=== PATIENT | male | born 1960 | race Caucasian/White ===

== ENCOUNTER 2024-02-16 08:40 | Emergency (ER) | payer BC, SELFPAY ==
[2024-02-16] VITALS (8 sets, daily range): BP systolic 116–151; BP diastolic 72–93; BMI 31.4
[2024-02-16] MEDS: NSS 1000 IV ×2 (09:10→11:33)
--- NOTE | 2024-02-16 09:12 | ED.GENMED ---
History of Present Illness
General
Chief Complaint: Hyper/Hypo Thermia Problem
Source: patient
Exam Limitations: none
Time Seen by Provider: 02/16/24 08:42
History of Present Illness
History of Present Illness:
63-year-old male presents via EMS from home. He was seen last evening when his got home from work. She went to bed around 10 and he decided to go outside and do yard work. He was outside all night and she found her next to her car. Patient
denies any fall. He was on the ground and could not get up. He does complain slightly of left ankle pain. He admits to drinking a handle of vodka daily but last drink was about 5 days ago. He is never withdrawn from alcohol. He is on lisinopril
daily but no other medications. He denies chest pain or shortness of breath. No other complaints.
Past History
Past History
ED Past Medical History: Other (n/a) and Other (n/a)
Social History
Tobacco: Non-smoker
Personal:
Living: with family
Employment: Employed
Phy Exam
Physical Exam
Physical Exam:
General: Unkempt male no acute respiratory distress
Neurologic: Somnolent but responsive to verbal stimuli follows commands oriented to person place and time. No facial asymmetry
HEENT: Normocephalic mucosa dry no bite burt to the tongue
Heart: Regular rate and rhythm
Lungs: Clear no wheeze
Extremities: No cyanosis.
Musculoskeletal exam: Spine nontender is slightly tender over the anterior medial left ankle
Course
Orders/Labs/Results
Orders:
Orders
02/16/24 08:48
EKG [Electrocardiogram (*1)] Stat
Reason for Study: Fatigue / Weakness
02/16/24 08:49
EKG- Treatment ONCE
02/16/24 09:01
Alcohol Urgent
Ammonia Urgent
CPK [Creatine Phosphokinase] Urgent
Complete Blood Count/With Diff Urgent
Comprehensive Metabolic Panel Urgent
02/16/24 09:09
CT Head W/o Iv Contrast Urgent
Comment:
Reason For Exam: confusion
0.9% Sodium Chloride 1000 ml [Nss] 1,000 ml IV BOLUS
02/16/24 09:10
Add On- LAB Urgent
Tests Added?: alcohol
02/16/24 09:11
CR Ankle - Left Min 3 Views Urgent
Comment:
Reason For Exam: pain
02/16/24 10:41
MR Brain W/o & With Contrast Urgent
Comment:
Reason For Exam: change in mental status, abnormal CT
Recent pill cam endoscopy?: No
02/16/24 10:48
Dexamethasone Sod Phosphate [Decadron] 10 mg IV NOW STA
Levetiracetam Injectable [Keppra] 1,000 mg IV NOW STA
02/16/24 10:51
0.9% Sodium Chloride 1000 ml [Nss] 1,000 ml IV BOLUS
02/16/24 11:27
CR Orbits - Pre Mri Urgent
Comment:
Reason For Exam: mri screen
02/16/24 11:47
CR Chest Single View Urgent
Reason For Exam: cough
Abnormal Lab Results
02/16/24
09:01
WBC 14.8 H 10^3/uL
(4.8-10.8)
RBC 4.44 L 10^6/uL
(4.70-6.10)
MCV 95.5 H fL
(80.0-94.0)
MCH 32.9 H pg
(27.0-31.0)
Abs Immat Gran (auto) 0.1 H 10^3/uL
(0-0.05)
Absolute Neuts (auto) 13.1 H 10^3/uL
(1.4-6.5)
Absolute Lymphs (auto) 0.7 L 10^3/uL
(1.2-3.4)
Absolute Monos (auto) 0.8 H 10^3/uL
(0.1-0.6)
Neutrophils % 88.8 H %
(42.2-75.2)
Lymphocytes % 4.9 L %
(20.5-51.1)
Carbon Dioxide 20 L mmol/L
(22-30)
BUN 24 H mg/dl
(9-20)
Glucose 134 H mg/dl
(70-99)
Calcium 10.3 H mg/dl
(8.4-10.2)
AST 91 H U/L
(17-59)
Ammonia < 9 L umol/L
(9-30)
Creatine Kinase 3187 H U/L
(55-170)
02/16/24 09:01
02/16/24 09:01
Vital Signs
Initial and Last Documented VS:
Initial Vital Signs
Temp Pulse Resp BP
98.6 F 94 16 116/72
02/16/24 08:44 02/16/24 08:44 02/16/24 08:44 02/16/24 08:44
Last Documented Vital Signs
Temp Pulse Resp BP Pulse Ox
98.6 F 79 19 142/83 95
02/16/24 08:44 02/16/24 12:15 02/16/24 12:15 02/16/24 12:00 02/16/24 12:24
MDM/Problems Addressed
Differential Diagnosis Includes:
Weakness, change in mental status. Patient went outside sometime throughout the night and was found on the ground this morning by his . He told me he was weeding outside. He was on the ground and could not get up. He notes fairly heavy
regular alcohol use but has not used in several days. Question possible early delirium from alcohol withdrawal although vital signs are stable. Question seizure but no bite burt on tongue. CT of head pending check labs. Ankle x-ray pending
*Critical Care Note
Total Time (30-74mins, 75-104mins- exclusive of procedures): Not Applicable
Update Note
Update Note:
CT head demonstrates bilateral frontal lesions with surrounding edema and subtle shift. now in the room. She states he has not been acting himself over the last couple months. Ankle x-rays are negative labs reviewed. Workup does demonstrate
concern for rhabdomyolysis with elevated CPK. 2 L of fluid ordered. Discussed findings of CT of head with emergency room attending as well as neurosurgery. Keppra and Decadron were ordered. Patient's family member is a nurse practitioner in
oncology at [facility]. Will contact them for potential transfer.
Patient is alert. He is responsive. Vital signs are stable
Reexamined patient still alert and responsive. MRI of brain was reviewed which demonstrates 2 separate masses 1 measuring 4 cm in the left frontal area 1 measuring 3 cm in the right frontal area both with severe surrounding vasogenic edema with
wstt-yo-bqukh shift. Spoke with neurosurgery at [facility], Dr. Lara. They agree to accept the patient in the ICU. Arrangements will be made for transfer
ED Attending Note
-
Portions of this chart may have been created with voice recognition software.� Occasional wrong word or��sound alike� substitutions may have occurred due to the inherent limitations of voice recognition software.
Discharge Plan
Departure
Patient Disposition: Acute Care Hospital
Date of Disposition: 02/16/24
Time of Disposition: 14:37
Discharge Problem:
Brain mass
Prescriptions:
No Action
lisinopril 10 mg tablet
10 mg PO DAILY Qty: 30 0RF
doxycycline hyclate 100 mg capsule
100 mg PO BID Qty: 14 0RF
Referrals:
UNKNOWN - PT DOES,NOT KNOW [Family Provider] -
Hospital Transfer
Other hospital: [facility]
I certify that the patient requires transfer: Yes
Discussed case with accepting physician: Dr. Lara
Reason for transfer: higher level of care and specialties available
Interventions
Interventions:
*Risk Screen - Suicide Last Done: 02/16/24 08:44
*General Assessment Last Done: 02/16/24 08:44
*Neglect/Abuse Screening Last Done: 02/16/24 08:44
ED- Fall Risk Assessment Last Done: 02/16/24 11:58
*ED COVID-19 Vaccine History Last Done: 02/16/24 11:58
ED- Neurological Assessment Last Done: 02/16/24 11:58
ED-Skin Assessment Last Done: 02/16/24 11:58
Discharge Date and Time
Print Language: PORTUGUESE
[2024-02-16 09:20] LABS: % Basophils 0.5 % (0-2); % Immature Granulocytes 0.3 % (0-0.5); % Lymphocytes 4.9 % (20.5-51.1); % Monocytes 5.5 % (1.7-9.3); % Neutrophils 88.8 % (42.2-75.2); Absolute Basophils 0.1 10^3/uL (0-0.2); Absolute Immature Granulocytes 0.1 10^3/uL (0-0.05); Absolute Lymphocytes 0.7 10^3/uL (1.2-3.4); Absolute Monocytes 0.8 10^3/uL (0.1-0.6); Absolute Neutrophils 13.1 10^3/uL (1.4-6.5); Hematocrit 42.4 % (39.0-52.0); Hemoglobin 14.6 g/dL (13.0-18.0); Mean Corp Hgb Conc. 34.4 g/dL (33.0-37.0); Mean Corpuscular Hgb 32.9 pg (27.0-31.0); Mean Corpuscular Volume 95.5 fL (80.0-94.0); Mean Platelet Volume 9.9 fL (7.4-10.4); Nucleated Red Blood Cells % 0 % (-); Platelet Count 263 10^3/uL (130-400); Red Blood Cell Count 4.44 10^6/uL (4.70-6.10); Red Cell Dist. Width 11.6 % (11.5-14.5); White Blood Cell Count 14.8 10^3/uL (4.8-10.8)
[2024-02-16 09:32] LABS: ALT (SGPT) 34 U/L (0-50); AST (SGOT) 91 U/L (17-59); Albumin 4.7 g/dl (3.5-5.0); Alkaline Phosphatase 91 U/L (38-126); Blood Urea Nitrogen 24 mg/dl (9-20); Calcium 10.3 mg/dl (8.4-10.2); Carbon Dioxide 20 mmol/L (22-30); Chloride 107 mmol/L (98-107); Estimated Creatinine Clearance 114 ml/min; Glucose 134 mg/dl (70-99); Potassium 3.8 mmol/L (3.5-5.1); Sodium 145 mmol/L (135-145); Total Bilirubin 0.9 mg/dl (0.2-1.3); Total Protein 7.6 g/dl (6.3-8.2); eGFR > 60.00
[2024-02-16 09:35] LABS: Ammonia < 9 umol/L (9-30)
[2024-02-16 09:40] LABS: Alcohol None Detected
[2024-02-16 09:42] LABS: Creatine Phosphokinase 3187 U/L (55-170)
[2024-02-16] MEDS: DECADRON 10 MG IV (11:33)
[2024-02-16] MEDS: KEPPRA 1000 MG IV (11:40)
== END 2024-02-16 16:05 | disposition short-term general hospital (02) ==
LOC: EMR 08:40
PROVIDERS: Physician Assistant; EMERGENCY PHYSICIAN Emergency Medicine
DX: G93.9 Disorder of brain, unspecified (principal); M25.572 Pain in left ankle and joints of left foot
CPT/HCPCS: 99285; 96374; 96375; 96361 ×2; 70030; 70450; 70553; 71045; 73610; 80053; 82077; 82140; 82550; 85025; 93005; A9575

== ENCOUNTER 2024-09-05 16:04 | Inpatient (IN) | payer BC, MEDICARE, SELFPAY ==
[2024-09-05] VITALS (19 sets, daily range): BP systolic 90–153; BP diastolic 56–80; PULSE 112–149; BMI 29.7
--- NOTE | 2024-09-05 12:47 | ED.GENMED ---
History of Present Illness
General
Chief Complaint: Blood Pressure Problem
Source: patient
Exam Limitations: none
Time Seen by Provider: 09/05/24 12:16
Nursing documentation reviewed up to this point in time: agreed with
History of Present Illness
History of Present Illness:
Patient is a 64-year-old male with past medical history of lymphoma on chemo treated at [facility] presents to the ER for evaluation. Patient reports for the past several days he has had chills decreased appetite. Today the visiting nurse came to assess
him and his blood pressure was low. He did feel dizzy with standing. He denies any actual fevers. Denies any chest pain shortness of breath. He denies any cough nasal congestion recent URI symptoms. He did have some diarrhea. He denies any
abdominal pain. He does report that his platelets were low and he received 2 units platelets on Monday 2 days ago at [facility]. He does report they are planning to do a stem cell transplant.
DR Carrol Mayorga is his oncologist
He denies any dark or black stool
Past History
Past History
ED Past Medical History: Other (n/a) and Other (n/a)
Social History
Tobacco: Non-smoker
Personal:
Living: with family
Employment: Employed
Review of Systems
Review of Systems
Allergies reviewed?: Yes
All Other Systems: ROS reviewed and negative except as documented in HPI and ROS
Constitutional: Reports fatigue and chills
Respiratory: Reports no symptoms; Denies cough or trouble breathing
Cardiac: Reports no symptoms
ABD/GI: Reports no symptoms
: Reports no symptoms
Musculoskeletal: Reports no symptoms
Skin: Reports no symptoms
Neurological: Reports no symptoms
Endocrine: Reports no symptoms
Psychiatric: Reports no symptoms
Phy Exam
General Physical Exam
General Presentation: no apparent distress
General age: appears stated age
General Skin: warm and dry
General Habitus: normal
General Mental: alert
General Hydration: dry mucous membranes
Cardiovascular Exam
Cardiovascular Exam: regular rate/rhythm, no murmur and normal peripheral pulses
Pulmonary Exam
Pulmonary Exam: lungs clear and no respiratory distress
Neurological Exam
Neurological Exam: alert and oriented x3
Musculoskeletal Exam
Musculoskeletal Exam: full ROM
Skin Exam
Skin Exam: normal color and warm/dry
Psychiatric Exam
Psychiatric Exam: normal mood/affect
Course
Orders/Labs/Results
Orders:
Orders
09/05/24 Lunch
Regular
09/05/24 12:55
Cardiac Monitoring- Treatment ONCE
IV Insert/Care/Rem.- Treatment PRN
Chest [CR Chest - 2 Views ] Urgent
Comment:
Reason For Exam: chills/chemo pt
09/05/24 12:58
0.9% Sodium Chloride 1000 ml [Nss] 1,000 ml IV BOLUS
09/05/24 13:11
COVID-19 Antigen Urgent
Source: Nasal Swab
Urinalysis Reflex To Culture Urgent
Date Specimen was Collected: 09/05/24
Time Specimen was Collected: 13:02
Urine Microscopic Reflex Cult Urgent
Influenza A+B Rapid Molecular Urgent
NANCI Source: Nasal Swab
Specimen Description:
Urine Culture Urgent
NANCI Source: U
Specimen Description:
Date Specimen was Collected: 09/05/24
Time Specimen was Collected: 13:02
09/05/24 13:26
Complete Blood Count/With Diff Urgent
Comprehensive Metabolic Panel Urgent
Lactic Acid Q4H
Comment: CANCEL 2nd LACTIC ACID IF 1st LACTIC ACID IS LESS THAN 2
09/05/24 14:15
* Blood Bank Products Urgent
'buster Orders: [place]/froy
Blood Bank Products: *Plt Single Donor Leuko
Quantity: 2
Transfuse Today: Yes
Reason: Thrombocytopenia
* Blood Bank Products Urgent
'buster Orders: [place]/froy
Blood Bank Products: *Packed RBC Leuko(PRBC's)
Quantity: 1
Transfuse Today: Yes
Reason: Anemia
09/05/24 14:42
Type And Crossmatch [Type+Screen] Urgent
Blood Culture Q30M
NANCI Source: Blood/Venous
Specimen Description:
Blood Culture Q30M
NANCI Source: Blood/Venous
Specimen Description:
09/05/24 15:21
ABO2 Urgent
BBK Wristband Number:
Associate notified that ABO2 has been ordered: [id number]
Date: 09/05/24
Time: 14:59
Digital Color Press Operator ID: [id number]
09/05/24 15:48
Admit/Transfer Patient As Directed
Co-Sign Provider:
Level of Care: Inpatient admission
Assign to:: Telemetry
Physician / Group: Samra Osorio
Diagnosis: low blood pressure; pancytopenia
Reason for Telemetry: Chest Pain syndromes
Date to Stop Telemetry: 09/07/24
Time to Stop Telemetry: 11:00
Reason for Hospitalization: low blood pressure; pancytopenia
Expected length of stay greater than two midnights?: Yes
ELOS- Estimated Length of Stay in days: 3
I certify the patient meets the requirements for IP care: Yes
PRN Pain Medication Management As Directed
May give lesser potent ordered pain med per pt: Yes
preference::
Protocol:: Medication orders for pain may be administered in a
manner that supports deferring to patient preference
when the pt is:
- Requesting an ordered lesser potent pain medication.
Least to most potent pain medications are defined
as: acetaminophen < NSAID < tramadol < opioids
(morphine, oxycodone, hydromorphone).
- Requesting a lesser dose of the same medication IF
ORDERED.
- Requesting a less intrusive route of administration
if both routes are prescribed by the provider (PO <
IV).
09/05/24 15:49
Code Status As Directed
Resuscitation Status: Full Code
09/05/24 15:57
EKG [Electrocardiogram (*1)] Routine
Reason for Study: Shortness of Breath
09/05/24 16:04
Precautions As Directed
Type of Precautions: Neutropenic
09/05/24 18:25
Acetaminophen [Tylenol] 650 mg PO Q4HPRN PRN
Docusate W/Senna [Senokot-S] 1 tablet PO BIDPRN PRN
Polyethylene Glycol Powder [Miralax] 17 grams PO DAILYPRN PRN
09/05/24 18:25
Consult Hematology [HEMATOLOGY CONSULT] Routine
Consulting Provider: Arthur Vanessa
Was physician already notified: Yes
Activity As Directed
Activity Level: As Tolerated
Nursing to Place Non Medication Order As Directed
Physician Order: please update eye care professional physician with any T > / = 100.4. If so, antibiotics should be
started.
Orthostatic Vital Signs As Directed
Orthostatic VS Frequency: BID
Pneumatic Compression Sleeves As Directed
Type: Knee high
Vital Signs As Directed
Frequency: Per unit guidelines
DX Deep Vein Thrombosis Video Routine
09/05/24 20:00
Complete Blood Count/No Diff Routine
Acyclovir [Zovirax] 800 mg PO BID
Levetiracetam [Keppra] 1,000 mg PO BID
09/06/24 06:00
Basic Metabolic Panel IN AM
Complete Blood Count/With Diff IN AM
Comprehensive Metabolic Panel IN AM
Magnesium IN AM
09/06/24 08:00
Cyanocobalamin [Vitamin B-12] 1,000 mcg PO DAILY
Sulfamethoxazole/Trimethoprim [Bactrim 400 mg/80 mg] 1 tablet PO MoWeFr@0800
Thiamine HCl [Vitamin B1] 100 mg PO DAILY
09/07/24 11:00
DC Protocol for Telemetry ONCE
Abnormal Lab Results
09/05/24 09/05/24 09/05/24
13:11 13:26 14:42
WBC 0.1 L* 10^3/uL
(4.8-10.8)
RBC 2.08 L 10^6/uL
(4.70-6.10)
Hgb 6.9 L* g/dL
(13.0-18.0)
Hct 19.0 L* %
(39.0-52.0)
MCH 33.2 H pg
(27.0-31.0)
Plt Count 6 L* 10^3/uL
(130-400)
Absolute Neuts (auto) 0.0 L* 10^3/uL
(1.4-6.5)
Absolute Lymphs (auto) 0.1 L 10^3/uL
(1.2-3.4)
Absolute Monos (auto) 0.0 L 10^3/uL
(0.1-0.6)
Neutrophils % 0.0 L %
(42.2-75.2)
Lymphocytes % 92.9 H %
(20.5-51.1)
Monocytes % 0.0 L %
(1.7-9.3)
Eosinophils % 7.1 H %
(0-6)
BUN 33 H mg/dl
(9-20)
Creatinine 1.8 H mg/dL
(0.7-1.3)
Glucose 115 H mg/dl
(70-99)
AST 13 L U/L
(17-59)
Leukocyte Esterase Rfl 1+ A
(Negative)
Urine RBC 3-6 A /HPF
(0-2)
Urine Bacteria (Reflex) Moderate A
(Negative)
Urine Albumin (Reflex) 1+ A
(Neg - Trace)
Crossmatch IS Only See Detail
09/05/24 13:26
09/05/24 13:26
Vital Signs
Initial and Last Documented VS:
Initial Vital Signs
Temp Pulse Resp BP Pulse Ox
98.0 F 78 16 107/56 98
09/05/24 11:48 09/05/24 11:48 09/05/24 11:48 09/05/24 11:48 09/05/24 11:48
Last Documented Vital Signs
Temp Pulse Resp BP Pulse Ox
97.8 F 113 20 90/67 95
09/05/24 19:47 09/05/24 19:47 09/05/24 19:47 09/05/24 19:47 09/05/24 19:35
City Councilman consulted with Physician
City Councilman consulted with physician?: Yes
Name of Physician Consulted: [place]
MDM/Problems Addressed
MDM/Problems Addressed:
Patient is a 64-year-old male being treated with chemotherapy for lymphoma presents to the ER for evaluation. He was sent by visiting nurse his blood pressure was low. He does complain of feeling decreased appetite and chills for the past several
days. He denies any URI or cold symptoms.. Patient presents here afebrile white count however low at 0.1 with 0 neutrophils hemoglobin noted 6.9 will require blood transfusion along with low platelets of 6000. Patient will require platelet
transfusion. Patient is followed at [facility] and just had platelet transfusion on Monday 2 days ago. Patient with elevated kidney function including BUN of 33 and creatinine 1.8 patient has his labs from his portal at [facility]. His last creatinine was
elevated at 1.44 on September 02
His white count was 0.1 and his platelets were 6 prior to him receiving 2 units of platelets at [facility].
Patient denies any dark or black stool. Will need admission for evaluation platelet transfusion as well as blood. I did place a call to his oncologist awaiting callback
PANTRY STEWARD/STEWARDESS from [facility] oncology called back and aware that patient is here and being admitted.
*Radiology
Radiology exam reviewed: radiology read reviewed
*Pulse Oximetry
Patient hypoxic: no
*EKG
Interpreted by ED Provider?: Yes
Heart Rate: 77
Rate: normal
Rhythm: sinus
Ischemia: no ischemia
*Critical Care Note
Total Time (30-74mins, 75-104mins- exclusive of procedures): Not Applicable
ED Attending Note
-
Portions of this chart may have been created with voice recognition software.� Occasional wrong word or��sound alike� substitutions may have occurred due to the inherent limitations of voice recognition software.
Discharge Plan
Departure
Patient Disposition: Admit
Date of Disposition: 09/05/24
Time of Disposition: 15:06
Admit to doctor: hospitalist
Presentation/result/management discussed w/ accepting MD/DO: Hospitalist
Patient with high blood pressure during this ER visit?: No
Condition: Fair
Covid-19: Not Applicable
Discharge Problem:
Anemia, Neutropenia, Thrombocytopenia
Interventions
Interventions:
*Risk Screen - Suicide Last Done: 09/05/24 11:48
*General Assessment Last Done: 09/05/24 13:00
*Neglect/Abuse Screening Last Done: 09/05/24 11:48
*ED- Fall Risk Assessment Last Done: 09/05/24 13:00
*ED COVID-19 Vaccine History Last Done: 09/05/24 13:00
*Nursing Disposition Last Done: 09/05/24 18:15
ED- Cardiac Assessment Last Done: 09/05/24 13:19
ED- Neurological Assessment Last Done: 09/05/24 13:19
ED- Pulmonary Assessment Last Done: 09/05/24 13:19
Discharge Date and Time
Discharge Date/Time: 09/05/24 18:15
[2024-09-05 13:25] LABS: Urine Albumin 1+ (Neg - Trace); Urine Bilirubin Negative (Negative); Urine Character Clear (Clear); Urine Color Yellow; Urine Glucose Negative (Negative); Urine Ketone Negative (Negative); Urine Leukocyte 1+ (Negative); Urine Nitrite Negative (Negative); Urine Occult Blood Negative (Negative); Urine Specific Gravity 1.025 (<1.030); Urine Urobilinogen Negative (Neg - 1+)
[2024-09-05] MEDS: NSS 1000 IV (13:30)
[2024-09-05 13:34] LABS: Urine Hyaline Cast 0-2 /LPF (0-2)
[2024-09-05 13:35] LABS: Urine Bacteria Moderate (Negative)
[2024-09-05 13:38] LABS: COVID-19 Antigen Negative (Negative)
[2024-09-05 13:56] LABS: Lactic Acid 0.7 mmol/L (0.7-2.0)
[2024-09-05 13:57] LABS: Hemoglobin 6.9 g/dL (13.0-18.0); Mean Corp Hgb Conc. 36.3 g/dL (33.0-37.0); Mean Corpuscular Hgb 33.2 pg (27.0-31.0); Mean Corpuscular Volume 91.3 fL (80.0-94.0); Mean Platelet Volume 10.3 fL (7.4-10.4); Platelet Count 6 10^3/uL (130-400); Red Blood Cell Count 2.08 10^6/uL (4.70-6.10); Red Cell Dist. Width 11.7 % (11.5-14.5); White Blood Cell Count 0.1 10^3/uL (4.8-10.8)
[2024-09-05 14:07] LABS: ALT (SGPT) 13 U/L (0-50); AST (SGOT) 13 U/L (17-59); Albumin 3.5 g/dl (3.5-5.0); Alkaline Phosphatase 70 U/L (38-126); Blood Urea Nitrogen 33 mg/dl (9-20); Calcium 9.3 mg/dl (8.4-10.2); Carbon Dioxide 22 mmol/L (22-30); Chloride 104 mmol/L (98-107); Estimated Creatinine Clearance 50 ml/min; Glucose 115 mg/dl (70-99); Potassium 3.9 mmol/L (3.5-5.1); Sodium 135 mmol/L (135-145); Total Bilirubin 0.5 mg/dl (0.2-1.3); Total Protein 6.3 g/dl (6.3-8.2)
[2024-09-05 14:13] LABS: % Eosinophils 7.1 % (0-6); % Lymphocytes 92.9 % (20.5-51.1); Absolute Lymphocytes 0.1 10^3/uL (1.2-3.4); Nucleated Red Blood Cells % 0 % (-)
--- NOTE | 2024-09-05 15:22 | HPS.HSE ---
Addendum entered and electronically signed by Samra Osorio MD 09/05/24 16:03:
patient recently had echo with EF 62%; no , trace AR
Original Note:
Family Physician
-
Family Physician: INTERVIEWE UNKNOWN - PT NOT
Chief Complaint
-
low blood pressure at home
History of Present Illness
Mr. 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
Patient denies fever but reports chills over the past couple of days. Two weeks ago he was URI symptoms, was diagnosed with rhinovirus and recovered. He has had chills and some dizziness over past couple of days. While sitting his SBP was in 80's
by VN and so he was told to come to the ER. He received a PLT transfusion 2 days ago.
He denies headache. No chest pain. No cough. No nausea/vomiting. He has had loose stools, but not diarrhea. No black or bloody stools. He denies eating and drinking well post chemo. He states he has been drinking plenty of fluids.
Medical History
Past Medical History
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
Past Surgical History: Reports Other
Social History
Tobacco: Former Smoker
Alcohol: None
Family History
Family History: Not pertinent
Allergies / Home Medications
Allergies reflects when Allergies were last updated in [facility].
Home Medications with original date entered in [facility]
Allergy/Medication List:
Allergies
Allergy/AdvReac Type Severity Reaction Status Date / Time
Penicillins Allergy Rash Verified 09/05/24 11:51
Home Medications
lisinopril 10 mg tablet 10 mg PO DAILY #30 tabs 12/05/21
acyclovir 800 mg tablet 800 mg PO BID 09/05/24
cyanocobalamin (vitamin B-12) 500 mcg tablet 1,000 mcg PO DAILY 09/05/24
famotidine 20 mg tablet (Pepcid) 20 mg PO DAILYPRN PRN given during chemo treatment 09/05/24
filgrastim-sndz 480 mcg/0.8 mL injection syringe (Zarxio) 480 mcg SC Q25D 09/05/24
levetiracetam 1,000 mg tablet (Keppra) 1,000 mg PO BID 09/05/24
pegfilgrastim 6 mg/0.6 mL subcutaneous syringe (Neulasta) 6 mg SC MONTHLY 09/05/24
sulfamethoxazole 400 mg-trimethoprim 80 mg tablet (Bactrim) 1 tab PO MOWEFR 09/05/24
thiamine HCl (vitamin B1) 100 mg tablet 100 mg PO DAILY 09/05/24
Review of Systems
-
History Source: Patient
A 12 point ROS was completed and negative except as noted: Yes
Physical Exam
Vital Signs
Vital Signs
Temp Pulse Resp BP Pulse Ox
98.0 F 73 16 106/73 97
09/05/24 11:48 09/05/24 13:16 09/05/24 13:16 09/05/24 13:01 09/05/24 13:01
Physical Exam
General: No Apparent Distress
HEENT: PERRLA
Respiratory: Clear; No Wheezes or Rales
Cardiac: S1/S2 and Regular Rhythm
GI: Soft and Non Tender
Musculoskeletal: No Edema
Skin: Warm and Dry; No Rash
Neuro: AO x 3
Psych: Calm
Laboratory Results
-
09/05/24 13:26
09/05/24 13:26
Laboratory Results
Lactic Acid Cancelled 09/05/24 17:00
Total Bilirubin 0.5 mg/dl (0.2-1.3) 09/05/24 13:26
AST 13 U/L (17-59) L 09/05/24 13:26
ALT 13 U/L (0-50) 09/05/24 13:26
Alkaline Phosphatase 70 U/L (38-126) 09/05/24 13:26
Data Reviewed
-
Diagnostic Radiology: Report Reviewed by me
Lab Data: Labs Reviewed by me
Impression/Plan
-
Mr. 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
Triage VS: T 98, P 78, RR 16, BP 107/56, SpO2 98%
LABS: WBC 0.1, Hg 6.9, PLT 6, Na 135, K+ 3.9, Cl 104, CO2 22, BUN 33, Cr 1.8, Glucose 115
UA with 3-5 WBC
Covid Negative; Influenza negative
CXR
IMPRESSION:
1. Clear lungs.
2. No significant change compared to prior study.
Low blood pressure responsive to IVF
-patient without fever or localizing signs of infection. He reports not eating well although drinking. Suspect component of poor PO intake as source for low blood pressure
-admit to telemetry
-hold off on antibiotics for now, but if patient spikes fever would start IV Cefepime/Vanc
-follow up blood cultures
-hold CEMETERY COUNSELOR Lisinopril
-Orthostats BID
Pancytopenia in setting of lymphoma and chemotherapy
REWORK OPERATOR Lymphoma
-ordered for 2 units PLT and 1 unit PRBC; repeat CBC this evening
-Hematology consulted
-last chemo was last Monday, patient sees Dr. Charlie Perez and plan is for stem cell transplant
-CEMETERY COUNSELOR Keppra
-CEMETERY COUNSELOR Acyclovir, Bactrim
LUKE on CKD
-creatinine was 1.4 2 days ago when measured at [facility]
-s/p 1L IVF here and will receive additional volume with transfusion
-monitor BMP
-hold CEMETERY COUNSELOR Lisinopril
-if creatinine worsens may need to hold Bactrim
DVT PPx SCD
FULL CODE
76 minutes spent on patient care
--- NOTE | 2024-09-05 19:13 | PTCARENOTE ---
Pt arrived to floor on stretcher from ED. Ambulated to bed with assist; Denies pain; AAO x 3; Tele monitor placed on Pt; HR ~ 100's; KVO of NSS connected to R SubQ Port as Pt is to receive pRBC's later. Oriented to room, call cosme within reach.
Will continue to monitor and assess.
[2024-09-05] MEDS: BACTRIM 400 MG/80 MG 1 TABLET PO (20:15)
[2024-09-05] MEDS: ZOVIRAX 800 MG PO (20:15)
[2024-09-05] MEDS: KEPPRA 1000 MG PO (20:19)
--- NOTE | 2024-09-05 22:30 | PTCARENOTE ---
ax3- afebrile bp wnl- pt got second unit plt's and currently has prbc's infusing. no s/s of reaction
[2024-09-06] VITALS (7 sets, daily range): BP systolic 117–179; BP diastolic 59–87; PULSE 82–107
--- NOTE | 2024-09-06 00:06 | PTCARENOTE ---
prbc's complete- no s/sof reaction. will redraw cbc at 0100
[2024-09-06] MEDS: TUMS CHEWABLE TABLET 400 MG PO (01:34)
[2024-09-06 01:53] LABS: Hematocrit 18.9 % (39.0-52.0); Hemoglobin 6.8 g/dL (13.0-18.0); Mean Corpuscular Hgb 32.2 pg (27.0-31.0); Mean Corpuscular Volume 89.6 fL (80.0-94.0); Mean Platelet Volume 8.5 fL (7.4-10.4); Platelet Count 23 10^3/uL (130-400); Red Blood Cell Count 2.11 10^6/uL (4.70-6.10); Red Cell Dist. Width 12.1 % (11.5-14.5); White Blood Cell Count 0.1 10^3/uL (4.8-10.8)
--- NOTE | 2024-09-06 02:04 | PTCARENOTE ---
critical values reported to psychiatric np from repeat cbc. order for another unit prbc's
--- NOTE | 2024-09-06 02:53 | PTCARENOTE ---
second unit prbc's transfusing no s/s of reaction. afebrile bp wnl
--- NOTE | 2024-09-06 04:39 | PTCARENOTE ---
prbc's completed. no signs of reaction. pt in for am labs
[2024-09-06 06:08] LABS: % Eosinophils 9.1 % (0-6); % Lymphocytes 90.9 % (20.5-51.1); Absolute Lymphocytes 0.1 10^3/uL (1.2-3.4); Hematocrit 20.7 % (39.0-52.0); Hemoglobin 7.5 g/dL (13.0-18.0); Mean Corp Hgb Conc. 36.2 g/dL (33.0-37.0); Mean Corpuscular Hgb 32.3 pg (27.0-31.0); Mean Corpuscular Volume 89.2 fL (80.0-94.0); Mean Platelet Volume 9.3 fL (7.4-10.4); Nucleated Red Blood Cells % 0 % (-); Platelet Count 21 10^3/uL (130-400); Red Blood Cell Count 2.32 10^6/uL (4.70-6.10); Red Cell Dist. Width 12.3 % (11.5-14.5); White Blood Cell Count 0.1 10^3/uL (4.8-10.8)
--- NOTE | 2024-09-06 06:12 | PTCARENOTE ---
critical lbs reported to mineralogy teacher cbc counts improving
[2024-09-06 06:25] LABS: ALT (SGPT) 13 U/L (0-50); AST (SGOT) 16 U/L (17-59); Albumin 3.1 g/dl (3.5-5.0); Alkaline Phosphatase 63 U/L (38-126); Blood Urea Nitrogen 25 mg/dl (9-20); Calcium 8.5 mg/dl (8.4-10.2); Carbon Dioxide 20 mmol/L (22-30); Chloride 107 mmol/L (98-107); Estimated Creatinine Clearance 69 ml/min; Glucose 114 mg/dl (70-99); Magnesium 1.5 mg/dl (1.6-2.3); Potassium 3.6 mmol/L (3.5-5.1); Sodium 137 mmol/L (135-145); Total Bilirubin 1.4 mg/dl (0.2-1.3); Total Protein 5.5 g/dl (6.3-8.2); eGFR > 60.00
[2024-09-06 07:10] LABS: Hepatitis C Antibody Negative (Negative)
[2024-09-06] MEDS: KEPPRA 1000 MG PO ×2 (07:59→20:37)
[2024-09-06] MEDS: VITAMIN B1 100 MG PO (07:59)
[2024-09-06] MEDS: VITAMIN B-12 1000 MCG PO (07:59)
[2024-09-06] MEDS: ZOVIRAX 800 MG PO ×2 (07:59→20:38)
[2024-09-06] MEDS: MAGNESIUM SULFATE 100 IV (08:58)
--- NOTE | 2024-09-06 12:01 | PHA.VAN.IN ---
Assessment
- Assessment
Renal Function: Unknown baseline (SCr 1.3/ CrCl 69)
Concomitant Antimicrobials: Cefepime
Plan
- Plan
Initial / Loading Dose: Vanco 1250mg x2 Administering on 09/06/24 (~1230) and (~2000)
Maintenance Regimen: Dose by level
Monitoring: R lvl 09/07/24 0600
Pharmacokinetics Vancomycin I
- -
Patient Age: 64
Patient Sex: Male
Vancomycin Day #: 1
Indication: Neutropenic Fever
Requesting Provider: VETO
Pertinent Antimicrobial Allergies:
Penicillins - Rash
Height / Weight:
Height 6 ft 4 in
Actual Weight 110.5 kg
Pertinent Past Medical History: Thrombocytopenia, Neutropenia
- Vital Signs / Lab Results
Temp Pulse Resp BP Pulse Ox
98.7 F 82 18 159/84 98
09/06/24 11:15 09/06/24 11:15 09/06/24 11:15 09/06/24 11:15 09/06/24 11:15
Lab Results - Hematology
09/05/24 09/05/24 09/06/24
13:26 20:00 01:21
WBC 0.1 L* Cancelled 0.1 L*
09/06/24
05:44
WBC 0.1 L*
Lab Results - Chemistry
09/05/24 09/06/24
13:26 05:45
BUN 33 H 25 H
Creatinine 1.8 H 1.3
Estimated Creat Clear 50 69
Albumin 3.5 3.1 L
09/05/24 09/05/24
13:26 17:00
Lactic Acid 0.7 Cancelled
Lab Results - Urine
09/05/24
13:11
Urine Nitrite (Reflex) Negative
Leukocyte Esterase Rfl 1+ A
Urine WBC (Reflex) 3-5
Ur Squamous Epith Cells 3-5
Urine Bacteria (Reflex) Moderate A
Microbiology Results
09/05/24 13:11 Influenza Types A & B (TY) - Final
Nasal Swab Negative for Influenza A & B, NAAT
Negative results must be combined with clinical observations
and patient history.
Nucleic Acid Amplification test (NAAT)performed on the
[employer] platform.
--- NOTE | 2024-09-06 12:23 | CON.ONC ---
Impression
Impression
pancytopenia
hypotension
[employer]IAN lymphoma - on chemotherapy w/ Dr. Perez [facility] - s/p 1 cycle Rituximab/ Etoposide/Cytarabine - in hospital 08/22-08/27 -w/ neulasta 08/29
Plan
Plan
1. 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
-now admitted w/ pancytopenia likely secondary to chemotherapy
-pt did receive neulasta 08/29 - monitor WBC
-antimicrobial prophylaxis as per [facility] d/c summary included: bactrim, fluconazole, acyclovir, and levoquin
-w/ hypotension/neutropenia - vancomycin/ cefepime have been initiated
-bactrim has been continued along w/ acyclovir
-not currently on fungal prophylaxis
-ID consult pending - assist w/ antibiotic coverage and optimal fungal prophylaxis agent
-both hemoglobin and plts improved w/transfusion
-continue to follow CBC and transfuse prn - CMV negative, irradiated, and leukoreduced products
-considering transfer to [facility]
Will continue to follow with you
Patient History
History of Present Illness
64y/o male seen in oncology consultation today regarding h/o [employer] TECHNICIAN lymphoma, currently being treated at [facility] w/ Dr. Perez. The patient completed treatment w/ 6 cycles of high dose methotrexate, temodar, and Rituximab in early July, now s/p 1 cylce of
Rtixuximab, Etoposide, and cytarabine consolidation, on 08/22 - 08/27, at [facility].
He is now admitted to [place] w/ low blood pressure. On presentation, his CBC demonstrated pancytopenia w/ total WBC 0.1, hemoglobin 6.9g/dl, and platelet count of 6000. He has been transfused both PRBCs and plts w/ improvement in hemoglobin
today to 7.5g/dl, and platelet count of 21,000.
Clinically, he feels better. No fevers or chills. BP has improved 159/84 currently. He denies SOB, chest pain, palpitations, abdominal pain.
Past-Medical/Surgical History
PMH:
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 Chris ROBERTSON - s/p 6 cycles - MTR (methotrexate/ temodar/rituximab) finishing early July - currently being tx w/ Rituximab/ etoposide/ cytarabine consolidation - last 08/22-08/27 - neulasta on 08/29 - [facility]
HTN
former tobacco use
former significant ETOH use
PSH:
brain biopsy - 02/20/24 - [employer]INE TECHNICIAN lymphoma
SH:
former ETOH use disorder, former tobacco user
FH: non-contributory
Allergies: PCN
Patient Medication
�Medication �Instructions �Recorded �Confirmed �Last Taken �Type
acyclovir 800 mg tablet 800 mg PO BID Infection 09/05/24 09/05/24 09/05/24 History
cyanocobalamin (vitamin B-12) 500 1,000 mcg PO DAILY Supplement 09/05/24 09/05/24 Unknown History
mcg tablet
famotidine 20 mg tablet (Pepcid) 20 mg PO DAILYPRN PRN given during 09/05/24 09/05/24 Unknown History
chemo treatment
filgrastim-sndz 480 mcg/0.8 mL 480 mcg SC Q25D Vermillion Stimulating 09/05/24 09/05/24 Unknown History
injection syringe (Zarxio) Factor
levetiracetam 1,000 mg tablet 1,000 mg PO BID Seizures 09/05/24 09/05/24 09/05/24 History
(Keppra)
pegfilgrastim 6 mg/0.6 mL 6 mg SC MONTHLY Vermillion Stimulating 09/05/24 09/05/24 10 Days Ago History
subcutaneous syringe (Neulasta) Factor ~08/26/24
sulfamethoxazole 400 1 tab PO MOWEFR Infection 09/05/24 09/05/24 Unknown History
mg-trimethoprim 80 mg tablet
(Bactrim)
thiamine HCl (vitamin B1) 100 mg 100 mg PO DAILY Supplement 09/05/24 09/05/24 09/05/24 History
tablet
lisinopril 10 mg tablet 10 mg PO DAILY Blood Pressure 09/06/24 09/05/24 09/04/24 History
Active Medications
Generic Name Dose Route Start Last Admin
Trade Name Freq PRN Reason Stop Dose Admin
Acetaminophen 650 mg 09/05/24 18:25
Acetaminophen 325 Mg Tablet PO 10/03/24 18:24
Q4HPRN PRN
mild pain/REYES/temp> 100.4F
Acyclovir Sodium 800 mg 09/05/24 20:00 09/06/24 07:59
Acyclovir Sodium 800 Mg Tablet PO 09/15/24 19:59 800 mg
BID DEJUAN Administration
Calcium Carbonate 400 mg 09/06/24 01:26 09/06/24 01:34
Calcium Antacid 200 Mg (Calcium Carbonate 500 Mg) Chew Tablet PO 10/04/24 01:25 400 mg
Q4HPRN PRN Administration
indigestion
Cefepime HCl 2,000 mg 09/06/24 12:00
Cefepime Hcl 2,000 Mg/12.5 Ml Vial IV
Q8H DEJUAN
Cyanocobalamin 1,000 mcg 09/06/24 08:00 09/06/24 07:59
Cyanocobalamin 1,000 Mcg Tablet PO 10/04/24 07:59 1,000 mcg
DAILY DEJUAN Administration
Heparin Sodium (Porcine) 500 unit 09/06/24 06:00 09/06/24 05:46
Heparin Flush Pf (100 Unit/Ml) 5 Ml Syringe IV 10/04/24 05:59 500 unit
PER PROTOCOL DEJUAN Administration
Magnesium Sulfate 4 gram in 100 mls @ 25 mls/hr 09/06/24 08:39 09/06/24 08:58
Magnesium Sulfate IV 09/06/24 12:38 100 mls
NOW STA Administration
Vancomycin HCl 1 each/ Device 0 mls @ 0 mls/hr 09/06/24 11:50
IV
PER PROTOCOL DEJUAN
As Directed
Vancomycin HCl 1,250 mg/ 275 mls @ 183.33 mls/hr 09/06/24 12:10
Sodium Chloride IV 09/06/24 13:39
NOW STA
Vancomycin HCl 1,250 mg/ 275 mls @ 183.33 mls/hr 09/06/24 20:00
Sodium Chloride IV 09/06/24 21:29
ONCE ONE
Levetiracetam 1,000 mg 09/05/24 20:00 09/06/24 07:59
Levetiracetam 500 Mg Regular Release Tablet PO 10/03/24 19:59 1,000 mg
BID DEJUAN Administration
Polyethylene Glycol 17 grams 09/05/24 18:25
Polyethylene Glycol Powder 17 Grams Packet PO 10/03/24 18:24
DAILYPRN PRN
constipation
Senna/Docusate Sodium 1 tablet 09/05/24 18:25
Docusate W/Senna (Stephanie-Colace) Tablet PO 10/03/24 18:24
BIDPRN PRN
constipation
Sodium Chloride 0 flush 09/05/24 20:00
Sodium Chloride 0.9% (Flush) Syringe IV 10/03/24 19:59
PER PROTOCOL DEJUAN
Sterile Water 10 ml 09/06/24 12:00
Sterile Water For Injection 10 Ml Vial IV 10/04/24 11:59
Q8H DEJUAN
Thiamine HCl 100 mg 09/06/24 08:00 09/06/24 07:59
Thiamine 100 Mg Tablet PO 10/04/24 07:59 100 mg
DAILY DEJUAN Administration
Trimethoprim/Sulfamethoxazole 1 tablet 09/06/24 08:00 09/05/24 20:15
Sulfamethoxazole (400 Mg)/Trimethoprim (80 Mg) Tablet PO 1 tablet
MoWeFr@0800 DEJUAN Administration
Review of Systems
-
An ROS was performed w/ pertinent findings as per HPI.
Physical Exam
-
General: Well Developed and No Apparent Distress
HEENT: Negative Jaundice
Cardiology: Normal Sinus Rhythm
Pulmonary: Clear
GI: Soft
Musculoskeletal: No Edema
Neurology: Non Focal
Labs
Lab Results
WBC 0.1 10^3/uL (4.8-10.8) L* 09/06/24 05:44
RBC 2.32 10^6/uL (4.70-6.10) L 09/06/24 05:44
Hgb 7.5 g/dL (13.0-18.0) L 09/06/24 05:44
Hct 20.7 % (39.0-52.0) L* 09/06/24 05:44
MCV 89.2 fL (80.0-94.0) 09/06/24 05:44
MCH 32.3 pg (27.0-31.0) H 09/06/24 05:44
MCHC 36.2 g/dL (33.0-37.0) 09/06/24 05:44
RDW 12.3 % (11.5-14.5) 09/06/24 05:44
Plt Count 21 10^3/uL (130-400) L* 09/06/24 05:44
MPV 9.3 fL (7.4-10.4) 09/06/24 05:44
Abs Immat Gran (auto) 0.0 10^3/uL (0-0.05) 09/06/24 05:44
Absolute Neuts (auto) 0.0 10^3/uL (1.4-6.5) L* 09/06/24 05:44
Absolute Lymphs (auto) 0.1 10^3/uL (1.2-3.4) L 09/06/24 05:44
Absolute Monos (auto) 0.0 10^3/uL (0.1-0.6) L 09/06/24 05:44
Absolute Eos (auto) 0.0 10^3/uL (0-0.7) 09/06/24 05:44
Absolute Basos (auto) 0.0 10^3/uL (0-0.2) 09/06/24 05:44
Immature Gran % 0.0 % (0-0.5) 09/06/24 05:44
Neutrophils % 0.0 % (42.2-75.2) L 09/06/24 05:44
Lymphocytes % 90.9 % (20.5-51.1) H 09/06/24 05:44
Monocytes % 0.0 % (1.7-9.3) L 09/06/24 05:44
Eosinophils % 9.1 % (0-6) H 09/06/24 05:44
Basophils % 0.0 % (0-2) 09/06/24 05:44
Creatinine 1.3 mg/dL (0.7-1.3) 09/06/24 05:45
Vital Signs
Vital Signs
Temp Pulse Resp BP Pulse Ox
98.7 F 82 18 159/84 98
09/06/24 11:15 09/06/24 11:15 09/06/24 11:15 09/06/24 11:15 09/06/24 11:15
[2024-09-06] MEDS: MAXIPIME 2000 MG IV ×2 (12:54→20:37)
[2024-09-06] MEDS: STERILE WATER FOR INJECTION 10 ML IV ×2 (12:54→20:37)
[2024-09-06] MEDS: VANCOCIN 275 MG IV (12:55)
--- NOTE | 2024-09-06 15:08 | CM ---
Patient seen at bedside with physicians. Patient for transfer to [place] when bed available. Patient lives with his in a 2 story home. No DME or VN needs. Patient uses the [facility] and the [facility]. Patient plan is to
return home when medically appropriate. CM will continue to follow for discharge planning needs.
Plan; transfer to [place]
--- NOTE | 2024-09-06 15:08 | W.PN.HOSP.TC ---
Addendum entered and electronically signed by Angie Wayne MD 09/06/24 17:02:
I saw and evaluated the patient independently. I reviewed the resident�s note and agree with findings and plan as documented by Dr. Lowe.
GENERAL: well developed, well nourished, male in no apparent distress
HEENT: NC/AT
HEART: regular rate and rhythm, +S1, +S2
LUNGS : clear to auscultation bilaterally
ABDOM: soft, nontender, nondistended, + bowel sounds
EXT: no cyanosis, clubbing, or edema
NEUROLOGIC: grossly intact
Hypotension --responsive to IVF--likely due to chemo/possibly decreased oral intake--Does not meet sepsis criteria--Continue patient on IV fluids--check Orthostatic vitals--Monitor urine output and electrolytes
Pancytopenia--due to chemo from [employer] lymphoma--last chemo was last Monday--getting ready for STEM cell transplant
Neutropenic fever-- On admission ordered 2 units of platelet and 1 unit of packed red blood cells, now hemoglobin is 7.5 trending up from 6.8 on admission and platelet count is 21 trending up from 6 on admission--Transfuse if hemoglobin is less than
7 and only give CMV negative, irradiated blood products, leukoreduced--follow cultures--apprec onc--plan for transfer to [place] when bed available-- Continue acyclovir, Bactrim, Keppra, acyclovir that he was all taking at home to prevent viral
bacterial infections--cont cefepime--MRSA screen neg so d/c vanco--apprec ID
Acute kidney injury--likely due to hypotension--in combination with Bactrim, lisinopril
[employer] lymphoma--cont Keppra for seizure prophylaxis
hypomagnesemia--replete
DVT proph
code status -- FULL CODE
Original Note:
Today's Communication/Plan
-
- Follow oncology
- Follow infectious disease
- Await transfer to [place]
- Trend CBC with differential, BMP
Assessment / Plan
Assessment / Plan
Spoke to Dr. Aguilera at [facility] and they are going to initiate a transfer order for a level 2 transfer to [place].
We want to transfer to [place] and patient wants to be transferred to [place] because he is in pancytopenia, his cancer care team are all at [place].
Hypotension due to poor oral intake:
- Today's blood pressure 128/69 and is well-controlled
-, tachycardia, dry mucous membranes, decreased skin turgor, decreased urine output
- Does not meet sepsis criteria
- Continue patient on IV fluids
- Admit to telemetry
- Orthostatic vitals twice daily
- Monitor urine output and electrolytes
Pancytopenia in the setting of lymphoma treated by chemotherapy
Leukopenia
Thrombocytopenia
Normocytic anemia
Neutropenic fever:
- On admission ordered 2 units of platelet and 1 unit of packed red blood cells, now hemoglobin is 7.5 trending up from 6.8 on admission and platelet count is 21 trending up from 6 on admission
-Transfuse if hemoglobin is less than 7 and only give CMV negative, irradiated blood products
- Absolute neutrophil lymphocyte monocyte eosinophil count is all 0, lymphocyte count is 90.9, eosinophil count is 9.1
- Blood cultures are pending
- Heme-onc was consulted
- Last chemotherapy session was last Monday with Dr. Perez and his future plans of stem cell transplant to be done at [facility]
- Continue acyclovir, Bactrim, Keppra, acyclovir that he was all taking at home to prevent viral bacterial infections
- Ordered IV cefepime and IV vancomycin
- Consulted infectious disease
- Daily CBC
Acute kidney injury on CKD:
- Creatinine is 1.3 today trending down from 1.4
- Hold lisinopril
- Monitor BMP
Anticipated Discharge: 24 - 48 hours
Subjective/Interval History
-
Date of Service: September 06, 2024
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
blood pressure was in the 80s. Preceding this 2 weeks ago he had a rhinovirus infection and recovered. He also received a platelet transfusion 2 days ago
Objective Data
-
Labs:
Laboratory Results
09/06/24 09/06/24
05:44 05:45
WBC 0.1 L*
Hgb 7.5 L
Hct 20.7 L*
Plt Count 21 L*
Sodium 137
Potassium 3.6
Chloride 107
Carbon Dioxide 20 L
BUN 25 H
Creatinine 1.3
Glucose 114 H
Calcium 8.5
Total Bilirubin 1.4 H
AST 16 L
ALT 13
Alkaline Phosphatase 63
Vital Signs:
Vital Signs
Temp Pulse Resp BP Pulse Ox
98.7 F 82 18 159/84 98
09/06/24 11:15 09/06/24 11:15 09/06/24 11:15 09/06/24 11:15 09/06/24 11:15
I&O
09/05/24 09/06/24 09/07/24
06:59 06:59 06:59
Intake Total 953 / 953 250 / 250
Balance 953 / 953 250 / 250
Review of Systems
-
History Source: Patient
Constitutional: Denies Fever, Weight Loss, Fatigue or Night Sweats
Respiratory: Denies Cough or Trouble Breathing
Cardiac: Denies Chest Pain, Palpitations, Syncope, PND or Orthopnea
Abdomen/GI: Denies Abdominal Pain, Nausea, Vomiting or Diarrhea
Genitourinary: Denies Dysuria, Frequency or Urgency
Musculoskeletal: Denies Joint Pain, Joint Swelling or Myalgias
Skin: Denies Itching or Rash
Physical Exam
-
General: Well Developed
Respiratory: Clear to Auscultation
Cardiac: Regular Rhythm
GI: Soft, Nontender, Nondistended and Normal Bowel Sounds
Musculoskeletal: No Cyanosis and No Edema
Skin: Warm and Dry
Neuro: Awake, Alert, Oriented and AO x 3
Psych: Calm
Data Reviewed
-
Diagnostic Radiology: Report Reviewed by me and Discussed with Physician
Labs: Labs Reviewed by me and Discussed with Physician
--- NOTE | 2024-09-06 15:11 | CON.ID ---
Consultation
-
Date/Time Consultation Requested: September 06, 2024 1147
Date/Time Consultation Performed: September 06, 2024 1510
Requesting Provider: Dr. Ryan Lowe
Performing Provider: Dr. Donna Cobb
Reason for Consultation: Neutropenia, hypotension
Chief Complaint / Past History
Chief Complaint
Dizziness, chills
History of Present Illness
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
to the hospital September 05 due to low blood pressure. ANC 0, hemoglobin 6.9, platelets 6. Blood pressure in the low 100s systolic. Chest x-ray negative. UA no significant pyuria. Patient was started on vancomycin and cefepime today. Patient
reports very poor appetite due to chemo. He feels dizzy getting up. Positive chills. No fevers or sweats. Home nurse took his blood pressure and it was 80s. No current headache, sinus congestion, rhinorrhea, sore throat, or oral lesions.
Approximately 2 weeks ago he had a cold and was positive for rhinovirus and symptoms have resolved. No shortness of breath. He has mild dry cough which is not new. No nausea, vomiting, abdominal pain, or diarrhea. No dysuria, urinary urgency,
frequency, or flank pain. No rash. No rectal pain. No joint pains. He lives with his and 1 dog. No dog bites or scratches. No ill contacts. No recent travel history. He has been compliant with his prophylactic antibiotics Bactrim Monday
Fridays, levofloxacin 500 mg daily, fluconazole 400 mg daily. He is scheduled for stem cell transplant in 2 weeks at [facility].
Past History
Additional Past Medical History:
BUCK SWAMPER lymphoma dx'd 01/2024 s/p 6 cycles MTX/temodar/Rituximab, s/p recent cycle 1 Rituximab/ Etoposide/Cytarabine (08/22 to 08/27/24), Neulasta ([facility])
HTN
Port placement
Allergy History:
Penicillins Allergy (Verified 09/05/24 11:51)
Rash
Medications Reviewed: Yes
Current Antibiotics:
Vancomycin
Cefepime
Social History
Tobacco: Former Smoker
Alcohol: Former
Drug: None
Personal:
Living: With Family
Family History
Family History: Not Pertinent
Review of Systems
Review of Systems
General: Chills and Change in Appetite; Negative Fever
HEENT: Negative Stiff Neck, Sinus Problems, Headache or Pharyngitis
Cardiovascular: Negative Chest Pain or Dyspnea
Respiratory: Negative Dyspnea, Cough or Sputum Production
Gasteroenterology: Negative Nausea, Vomiting or Diarrhea
Genital / Urological: Negative Dysuria, Hematuria or Flank Pain
Endocrine: Weakness
Skin / Hair / Nails: Negative Rash
Neurological: Negative Headache or Dizziness
All systems: All other systems were reviewed and were negative
Vital Signs
Temp Pulse Resp BP Pulse Ox
98.7 F 82 18 159/84 98
09/06/24 11:15 09/06/24 11:15 09/06/24 11:15 09/06/24 11:15 09/06/24 11:15
Physical Exam
Physical Exam
Constitutional: No Acute Distress and Non-toxic
Head: Other (No frontal or maxillary sinus tenderness)
Eyes: No Conjunctival Hemorrhage and Sclera Anicteric; Negative Ocular Discharge
Pharynx: Benign
Oral: No Thrush and Other (Upper dentures in place.)
Cardiovascular: Regular Rate and S1/S2
Pulmonary: Clear
Gastrointestinal: Soft, Non Tender, Non Distended and Normal Bowel Sounds
Genito-Urinary: Negative Suprapubic Tenderness or CVA Tenderness
Extremities: Negative Edema
Musculoskeletal: Negative Spinal Tenderness
Skin: Negative Jaundice
Neurological: AO x 3; Negative Meningeal Signs
Lines: Port (RCW no erythema)
Lab / Diagnostic Study Results
09/06/24 05:44
09/06/24 05:45
Abs Immat Gran (auto) 0.0 10^3/uL (0-0.05) 09/06/24 05:44
Absolute Neuts (auto) 0.0 10^3/uL (1.4-6.5) L* 09/06/24 05:44
Absolute Lymphs (auto) 0.1 10^3/uL (1.2-3.4) L 09/06/24 05:44
Absolute Monos (auto) 0.0 10^3/uL (0.1-0.6) L 09/06/24 05:44
Absolute Basos (auto) 0.0 10^3/uL (0-0.2) 09/06/24 05:44
Immature Gran % 0.0 % (0-0.5) 09/06/24 05:44
Neutrophils % 0.0 % (42.2-75.2) L 09/06/24 05:44
Lymphocytes % 90.9 % (20.5-51.1) H 09/06/24 05:44
Monocytes % 0.0 % (1.7-9.3) L 09/06/24 05:44
Eosinophils % 9.1 % (0-6) H 09/06/24 05:44
Basophils % 0.0 % (0-2) 09/06/24 05:44
Lactic Acid Cancelled 09/05/24 17:00
Ur Squamous Epith Cells 3-5 /LPF (Few) 09/05/24 13:11
Microbiology Results
Micro:
09/05/24 14:42 Blood Culture - Preliminary
Blood/Venous No Growth in 24 hours- Final report to follow
09/05/24 14:42 Blood Culture - Preliminary
Blood/Venous No Growth in 24 hours- Final report to follow
09/05/24 13:11 Urine Culture - Final
Urine NO GROWTH
09/05/24 13:11 Influenza Types A & B (TY) - Final
Nasal Swab Negative for Influenza A & B, NAAT
Negative results must be combined with clinical observations
and patient history.
Nucleic Acid Amplification test (NAAT)performed on the
[employer] platform.
09/05/24 CXR: Clear lungs.
Assessment / Plan
# Neutropenia without fever
# Low BP resolved with IV fluid. Of note, decreased po intake.
# Profound pancytopenia due to chemo
# BUCK SWAMPER lymphoma completed induction chemo, now on consolidation cycle 1 Rituxan/etoposide/cytarabine (08/22-08/27), Neulasta.
- CXR neg, Ucx neg
- Bcx x 2 neg x 24h
- DC Vancomycin
- No objection to continue cefepime for now. If bcx's remains neg at 48h, dc cefepime.
- Continue ppx Bactrim MWF, Acyclovir 800mg po bid.
- Resume ppx fluconazole 400mg po qd.
- Eventually resume levofloxacin 500mg daily when off cefepime.
[2024-09-06] MEDS: DIFLUCAN 400 MG PO (17:11)
--- NOTE | 2024-09-06 17:44 | W.DCSUMMARY ---
Addendum entered and electronically signed by Angie Wayne MD 09/07/24 07:31:
Read, reviewed, and agree. See same day progress note for additional details. Time spent coordinating care, DC planning, review of DC plan of care with resident, transition of care, review of records in EMR, med rec, consults, notes, d/w
consultants, nursing, family, and CM = 43 minutes
Upon consultation with patient and oncology, it was recommended that the patient be transferred to [facility] where his oncologist are. He is awaiting stem cell transplant. Patient is in agreement with transfer as well.
While waiting for a bed we will continue antibiotics and supportive care. Accepting physician is Dr. Catherine. All are in agreement with the plan.
Original Note:
Discharge Summary
Discharge Data
Date of Admission: 09/05/24
Date of Discharge: 09/06/24
-
Pending Results: No
Hospital Course
Discharging Physician : Dr. Angie Wayne and Dr. Ryan Lowe
Disposition : [facility]
Primary care physician : Does not have a primary care provider
Principal Discharge diagnosis : Hypotension
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
nurse and his systolic blood pressure was in the 80s and dizziness getting up. Preceding this 2 weeks ago he had a rhinovirus infection and recovered. He also received a platelet transfusion 2 days ago. On arrival to the emergency department he
denies any headache, chest pain, cough, nausea/vomiting, diarrhea. His labs on admission were WBC 0.1, hemoglobin 6.8 for which he received a packed unit of red blood cells and today is 7.5, platelet count which was 6 on admission and after
receiving 2 units of platelets was 21, all absolute counts are 0, eosinophilia 9.1, lymphocytes 90, sodium 137, potassium 3.6, glucose 114, magnesium 1.5 which we repleted and administered 40 Mg magnesium sulfate IV, total bilirubin of 1.4 which is
an increase from 0.5 on admission. Blood pressure on arrival was 107/56 for which we gave IV fluid and on discharge 179/87 for which we started administering his home medication of lisinopril 10 mg. chest x-ray were negative for any acute findings,
please reference below. Possible 74 on admission, increased to 112, 91 at discharge. Temperature was 98.2 on admission and is now 99.2. Blood cultures negative, urine culture negative. for his pancytopenia and neutropenic fever we continued his
Bactrim, administered IV cefepime and IV vancomycin, his home dose of acyclovir. For his hematuria that was seen on urinalysis on admission where he had 4+ occult blood and multiple RBCs in his urine per high-power field, we are doing a repeat
urine analysis and renal ultrasound with bladder. For his hyperglycemia we are monitoring the blood glucose levels, giving sliding scale insulin and insulin Lantus at 22 units, we will check an HbA1c which is pending. Infectious disease and
oncology were both consulted and are okay with the transfer to [place]. He is scheduled for a stem cell transplant 2 weeks at [facility]
Important imaging findings :
Chest x-ray on 09/05/2024:
1. Clear lungs.
2. No significant change compared to prior study.
Procedure findings :
Discharge Plan
-
Patient Disposition: Acute Care Hospital
Condition: Fair
Discharge Orders:
Discharge Patient (As Directed); Ordered 09/06/24
Ordered By: Ryan Lowe
Discharge Date and Time
Print Language: PRYDEINIG
[2024-09-06] MEDS: ZESTRIL 10 MG PO (17:53)
[2024-09-06 22:35] LABS: Glucose - Point of Care 129 mg/dl (70-99)
[2024-09-07] VITALS (9 sets, daily range): BP systolic 91–120; BP diastolic 54–78; PULSE 74–121
--- NOTE | 2024-09-07 00:15 | PTCARENOTE ---
Miky from [facility] called @ this time for update on pt, no bed available @ this time.
[2024-09-07] MEDS: MAXIPIME 2000 MG IV ×2 (04:53→13:25)
[2024-09-07] MEDS: STERILE WATER FOR INJECTION 10 ML IV ×2 (04:54→13:26)
[2024-09-07 05:35] LABS: % Lymphocytes 70.6 % (20.5-51.1); % Monocytes 11.8 % (1.7-9.3); % Neutrophils 17.6 % (42.2-75.2); Absolute Lymphocytes 0.1 10^3/uL (1.2-3.4); Hematocrit 20.3 % (39.0-52.0); Hemoglobin 7.2 g/dL (13.0-18.0); Mean Corp Hgb Conc. 35.5 g/dL (33.0-37.0); Mean Corpuscular Hgb 32.1 pg (27.0-31.0); Mean Corpuscular Volume 90.6 fL (80.0-94.0); Mean Platelet Volume 9.2 fL (7.4-10.4); Nucleated Red Blood Cells % 0 % (-); Platelet Count 13 10^3/uL (130-400); Red Blood Cell Count 2.24 10^6/uL (4.70-6.10); Red Cell Dist. Width 12.6 % (11.5-14.5); White Blood Cell Count 0.2 10^3/uL (4.8-10.8)
[2024-09-07 05:40] LABS: ALT (SGPT) 15 U/L (0-50); AST (SGOT) 16 U/L (17-59); Albumin 3.1 g/dl (3.5-5.0); Alkaline Phosphatase 60 U/L (38-126); Blood Urea Nitrogen 26 mg/dl (9-20); Calcium 9.3 mg/dl (8.4-10.2); Carbon Dioxide 20 mmol/L (22-30); Chloride 109 mmol/L (98-107); Estimated Creatinine Clearance 64 ml/min; Glucose 111 mg/dl (70-99); Potassium 3.9 mmol/L (3.5-5.1); Sodium 138 mmol/L (135-145); Total Bilirubin 0.6 mg/dl (0.2-1.3); Total Protein 6.1 g/dl (6.3-8.2); eGFR 55.43
--- NOTE | 2024-09-07 06:31 | W.PN.ONC2 ---
Today's Communication / Plan
-
.
Impression
Impression
pancytopenia
hypotension
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 Perez [facility] - s/p 1 cycle Rituximab/ Etoposide/Cytarabine - in hospital 08/22-08/27 -w/ neulasta 08/29
Plan
Plan
1. 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
-now admitted w/ pancytopenia likely secondary to chemotherapy
-neutropenic precautions -pt did receive neulasta 08/29 - monitor WBC
-antimicrobial prophylaxis as per [facility] d/c summary included: bactrim, fluconazole, acyclovir, and levoquin
-w/ hypotension/neutropenia - vancomycin/ cefepime have been initiated
-bactrim has been continued along w/ acyclovir
-not currently on fungal prophylaxis
-ID consult pending - assist w/ antibiotic coverage and optimal fungal prophylaxis agent
-both hemoglobin and plts improved w/transfusion
-continue to follow CBC and transfuse prn - CMV negative, irradiated, and leukoreduced products
-awaiting transfer to [facility]
Will continue to follow with you
Subjective/Objective
Subjective
no new complaints
Vital Signs:
Vital Signs
Temp Pulse Resp BP Pulse Ox
97.7 F 63 18 103/58 95
09/07/24 03:23 09/07/24 03:23 09/07/24 03:23 09/07/24 03:23 09/07/24 03:23
Lab Results:
Laboratory Data
WBC 0.2 10^3/uL (4.8-10.8) L* 09/07/24 04:59
Hgb 7.2 g/dL (13.0-18.0) L 09/07/24 04:59
Plt Count 13 10^3/uL (130-400) L* D 09/07/24 04:59
eGFR 55.43 09/07/24 04:59
[2024-09-07] MEDS: KEPPRA 1000 MG PO ×2 (08:40→21:28)
[2024-09-07] MEDS: ZESTRIL 10 MG PO (08:40)
[2024-09-07] MEDS: ZOVIRAX 800 MG PO ×2 (08:40→21:28)
[2024-09-07] MEDS: DIFLUCAN 400 MG PO (08:41)
[2024-09-07] MEDS: VITAMIN B1 100 MG PO (08:41)
[2024-09-07] MEDS: VITAMIN B-12 1000 MCG PO (08:41)
--- NOTE | 2024-09-07 11:15 | W.PN.HOSP.TC ---
Today's Communication/Plan
-
cont abx
cont IVF
transfuse as per onc (leukoreduced, CMV neg, irradiated)
transfer to [place] when bed available
Assessment / Plan
Assessment / Plan
pt is a 64 year old male
Hypotension --responsive to IVF--resolved--likely due to chemo/possibly decreased oral intake--Does not meet sepsis criteria--positive orthostatics but not symptomatic
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 Catherine accepting
Neutropenic +/- fever (max temp 99) but immunosuppressed-- s/p 2 units platelets, 2 unit pRBC --Transfuse if hemoglobin is less than 7 and only give CMV negative, irradiated blood products, leukoreduced--cultures neg--apprec onc--plan for transfer
to [place] when bed available-- Continue acyclovir, Bactrim, Keppra that he was all taking at home to prevent viral bacterial infections--cont cefepime--MRSA screen neg so d/c vanco--apprec ID
Acute kidney injury--likely due to hypotension--in combination with Bactrim, lisinopril--cont IVF
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
hypomagnesemia--replete
DVT proph
code status -- FULL CODE
Anticipated Discharge: Within 24 hours
Subjective/Interval History
-
Date of Service: September 07, 2024
family at bedside--pt without c/o
Objective Data
-
Labs:
Laboratory Results
09/07/24
04:59
WBC 0.2 L*
Hgb 7.2 L
Hct 20.3 L*
Plt Count 13 L* D
Sodium 138
Potassium 3.9
Chloride 109 H
Carbon Dioxide 20 L
BUN 26 H
Creatinine 1.4 H
Glucose 111 H
Calcium 9.3
Total Bilirubin 0.6
AST 16 L
ALT 15
Alkaline Phosphatase 60
Vital Signs:
max temp for 24 hours
09/06/24
16:17
Temp 99.2 F
Vital Signs
Temp Pulse Resp BP Pulse Ox
97.7 F 84 16 113/54 97
09/07/24 07:40 09/07/24 07:40 09/07/24 07:40 09/07/24 07:40 09/07/24 07:40
I&O
09/06/24 09/07/24 09/08/24
06:59 06:59 06:59
Intake Total 953 / 953 2890 / 2890
Balance 953 / 953 2890 / 2890
Review of Systems
-
All other systems: Reviewed and negative
Physical Exam
-
General: Well Developed, Well Nourished and No Apparent Distress
HEENT: Normocephalic and Atraumatic
Respiratory: Clear to Auscultation; Negative Wheezes or Rhonchi
Cardiac: Regular Rhythm and S1/S2; Negative Murmur
GI: Soft, Nontender, Nondistended and Normal Bowel Sounds
Musculoskeletal: No Clubbing, No Cyanosis and No Edema
Neuro: Awake and Alert
--- NOTE | 2024-09-07 13:14 | PTCARENOTE ---
spoke with transfer nurse at [facility] to give update status
--- NOTE | 2024-09-07 16:26 | W.PN.ID1 ---
Date of Service
Date of Service: September 07, 2024
Today's Communication
- stopped cefepime
- Continue ppx Bactrim MWF, Acyclovir 800mg po bid, fluconazole 400mg po qd.
- resume levofloxacin 500mg daily
- awaiting a bed at [facility]
Assessment / Plan
# Neutropenia without fever
# Low BP resolved with IV fluid. Of note, decreased po intake.
# Profound pancytopenia due to chemo
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
- CXR neg, Ucx neg
- Bcx x 2 neg x 48h
- stopped cefepime
- Continue ppx Bactrim MWF, Acyclovir 800mg po bid, fluconazole 400mg po qd.
- resume levofloxacin 500mg daily
- awaiting a bed at [facility]
Chief Complaint
-: Other (Neutropenia, hypotension)
Subjective / Review of Systems
afebrile
bp stable
awaiting a bed at [facility]
no complaints
Vital Signs / Physical Exam
Vital Signs
Vital Signs
Temp Pulse Resp BP Pulse Ox
97.5 F 73 16 109/54 98
09/07/24 15:40 09/07/24 15:40 09/07/24 15:40 09/07/24 15:40 09/07/24 15:40
Physical Exam
Constitutional: Acutely Ill and Chronically Ill
Cardiovascular: Regular Rate and S1/S2; Negative Murmur or Rub
Pulmonary: Clear and Symmetric; Negative Wheezes or Rales
Gastrointestinal: Soft, Non Tender, Non Distended and Normal Bowel Sounds
Skin: Warm and Dry; Negative Rash or Jaundice
Lines: Port (accessed functional)
Objective Data
Lab Data
Lab Results
09/07/24 04:59
09/07/24 04:59
Estimated Creat Clear 64 ml/min 09/07/24 04:59
Lactic Acid Cancelled 09/05/24 17:00
Total Bilirubin 0.6 mg/dl (0.2-1.3) 09/07/24 04:59
AST 16 U/L (17-59) L 09/07/24 04:59
ALT 15 U/L (0-50) 09/07/24 04:59
Alkaline Phosphatase 60 U/L (38-126) 09/07/24 04:59
Most recent labs reviewed.
Micro Results:
09/05/24 14:42 Blood Culture - Preliminary
Blood/Venous No Growth in 48 hours- Final report to follow
09/05/24 14:42 Blood Culture - Preliminary
Blood/Venous No Growth in 48 hours- Final report to follow
09/05/24 13:11 Urine Culture - Final
Urine NO GROWTH
09/05/24 13:11 Influenza Types A & B (TY) - Final
Nasal Swab Negative for Influenza A & B, NAAT
Negative results must be combined with clinical observations
and patient history.
Nucleic Acid Amplification test (NAAT)performed on the
[employer] platform.
09/05/24 CXR: Clear lungs.
--- NOTE | 2024-09-07 16:59 | PTCARENOTE ---
started at 1649 unit of PLT. unit is A- pt is O- this is compatible. removed 20g IV from RAC
[2024-09-07] MEDS: LEVAQUIN 500 MG PO (18:13)
--- NOTE | 2024-09-08 04:32 | PTCARENOTE ---
[facility] called for updated no beds @ this time.
[2024-09-08 07:00] LABS: Hematocrit 19.8 % (39.0-52.0); Mean Corp Hgb Conc. 35.4 g/dL (33.0-37.0); Mean Corpuscular Hgb 32.1 pg (27.0-31.0); Mean Corpuscular Volume 90.8 fL (80.0-94.0); Mean Platelet Volume 10.5 fL (7.4-10.4); Platelet Count 15 10^3/uL (130-400); Red Blood Cell Count 2.18 10^6/uL (4.70-6.10); Red Cell Dist. Width 12.3 % (11.5-14.5); White Blood Cell Count 0.6 10^3/uL (4.8-10.8)
[2024-09-08 07:18] LABS: Blood Urea Nitrogen 25 mg/dl (9-20); Carbon Dioxide 19 mmol/L (22-30); Chloride 111 mmol/L (98-107); Estimated Creatinine Clearance 74 ml/min; Glucose 102 mg/dl (70-99); Potassium 3.9 mmol/L (3.5-5.1); Sodium 139 mmol/L (135-145); eGFR > 60.00
[2024-09-08 07:40] VITALS: BP 100/65
[2024-09-08] MEDS: DIFLUCAN 400 MG PO (09:50)
[2024-09-08] MEDS: ZOVIRAX 800 MG PO ×2 (09:51→19:58)
[2024-09-08] MEDS: KEPPRA 1000 MG PO ×2 (09:51→19:57)
[2024-09-08] MEDS: VITAMIN B-12 1000 MCG PO (09:52)
[2024-09-08] MEDS: LEVAQUIN 500 MG PO (09:52)
[2024-09-08] MEDS: VITAMIN B1 100 MG PO (09:53)
[2024-09-08] MEDS: ZESTRIL PO (10:01)
--- NOTE | 2024-09-08 11:09 | W.PN.HOSP.TC ---
Today's Communication/Plan
-
pt does not want to go to [place]--frustrated with waiting and perception we aren't doing anything (did get platelets last evening)--will d/w onc/ID re: next steps (discharge home, keep here, transfer to [facility], etc)
Assessment / Plan
Assessment / Plan
pt is a 64 year old male
pt does not want to go to [place]--frustrated with waiting and perception we aren't doing anything (did get platelets last evening)--will d/w onc/ID re: next steps
Hypotension --responsive to IVF--resolved--likely due to chemo/possibly decreased oral intake--Does not meet sepsis criteria--positive orthostatics but not symptomatic--will give 500ml NSS today
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 Catherine accepting
Neutropenic +/- fever (max temp 99) but immunosuppressed-- s/p 3 units platelets, 2 unit pRBC --Transfuse if hemoglobin is less than 7 and only give CMV negative, irradiated blood products, leukoreduced--cultures neg, ?stop abx--apprec onc---
Continue acyclovir, Bactrim, Keppra that he was all taking at home to prevent viral bacterial infections--MRSA screen neg so d/c vanco--apprec ID
Acute kidney injury--likely due to hypotension--in combination with Bactrim, lisinopril--cont IVF
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
hypomagnesemia--replete
DVT proph
code status -- FULL CODE
Anticipated Discharge: Within 24 hours
Subjective/Interval History
-
Date of Service: September 08, 2024
pt wants to go home if possible but does not want to go to [facility]
Objective Data
-
Labs:
Laboratory Results
09/08/24
06:22
WBC 0.6 L*
Hgb 7.0 L
Hct 19.8 L*
Plt Count 15 L*
Sodium 139
Potassium 3.9
Chloride 111 H
Carbon Dioxide 19 L
BUN 25 H
Creatinine 1.2
Glucose 102 H
Calcium 9.0
Vital Signs:
max temp for 24 hours
09/07/24
23:00
Temp 98.4 F
Vital Signs
Temp Pulse Resp BP Pulse Ox
97.9 F 72 16 100/65 98
09/08/24 07:40 09/08/24 07:40 09/08/24 07:40 09/08/24 10:01 09/08/24 07:40
I&O
09/07/24 09/08/24 09/09/24
06:59 06:59 06:59
Intake Total 2890 / 2890 1793 / 1793
Output Total 275 / 275
Balance 2890 / 2890 1518 / 1518
Review of Systems
-
All other systems: Reviewed and negative
Physical Exam
-
General: Well Developed, Well Nourished and No Apparent Distress
HEENT: Normocephalic and Atraumatic
Respiratory: Clear to Auscultation; Negative Wheezes or Rhonchi
Cardiac: Regular Rhythm and S1/S2; Negative Murmur
GI: Soft, Nontender, Nondistended and Normal Bowel Sounds
Musculoskeletal: No Clubbing, No Cyanosis and No Edema
Skin: Warm
Neuro: Awake
--- NOTE | 2024-09-08 11:35 | CM ---
CM reviewed chart and spoke MD and Nursing earlier this morning.
As of 2a [facility] did not have an open bed for pts transfer.
DC order remains in place.
Onc to continue to follow.
DC remains in place.
CM/SW will continue to follow to ensure a safe and timely dc.
[2024-09-08 12:28] LABS: Segmented Neutrophils 42 % (42-75)
[2024-09-08 12:29] LABS: Band Neutrophils 5 % (0-3); Lymphocytes 36 % (20-51)
[2024-09-08 12:32] LABS: Monocytes 17 % (2-9)
[2024-09-08 12:33] LABS: Platelets Checked YES
[2024-09-08 12:34] LABS: Normal RBC Morphology Yes; Total Cells Counted 100
[2024-09-08 12:38] LABS: Absolute Neutrophils -Man Diff 0.2 10^3/uL (1.4-6.5)
--- NOTE | 2024-09-08 12:52 | W.PN.ONC2 ---
Today's Communication / Plan
-
.
Impression
Impression
pancytopenia
hypotension
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
Plan
Plan
1. 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
-now admitted w/ pancytopenia likely secondary to chemotherapy
-neutropenic precautions -pt did receive Neulasta 08/29 - monitor WBC
-antimicrobial prophylaxis as per [facility] d/c summary included: Bactrim, fluconazole, acyclovir, and Levaquin
-w/ hypotension/neutropenia - vancomycin/ cefepime have been initiated
-Bactrim has been continued along w/ acyclovir
-not currently on fungal prophylaxis
-ID consult pending - assist w/ antibiotic coverage and optimal fungal prophylaxis agent
-both hemoglobin and plts improved w/transfusion
-continue to follow CBC and transfuse prn - CMV negative, irradiated, and leukoreduced products
-awaiting transfer to [facility]
Will continue to follow with you
Subjective/Objective
Subjective
no new complaints
Vital Signs:
Vital Signs
Temp Pulse Resp BP Pulse Ox
97.9 F 72 16 100/65 98
09/08/24 07:40 09/08/24 07:40 09/08/24 07:40 09/08/24 10:01 09/08/24 09:50
Lab Results:
Laboratory Data
WBC 0.6 10^3/uL (4.8-10.8) L* 09/08/24 06:22
Hgb 7.0 g/dL (13.0-18.0) L 09/08/24 06:22
Plt Count 15 10^3/uL (130-400) L* 09/08/24 06:22
eGFR > 60.00 09/08/24 06:22
[2024-09-08] MEDS: NSS 500 IV (13:16)
[2024-09-08 16:00] VITALS: BP 126/71
[2024-09-08 21:00] VITALS: BP 103/62; BP 94/60; BP 99/62; PULSE 101; PULSE 118; PULSE 81
[2024-09-08 23:25] VITALS: BP 109/65
[2024-09-09 05:28] LABS: Hematocrit 20.4 % (39.0-52.0); Hemoglobin 7.3 g/dL (13.0-18.0); Mean Corp Hgb Conc. 35.8 g/dL (33.0-37.0); Mean Corpuscular Hgb 32.6 pg (27.0-31.0); Mean Corpuscular Volume 91.1 fL (80.0-94.0); Mean Platelet Volume 10.4 fL (7.4-10.4); Platelet Count 11 10^3/uL (130-400); Red Blood Cell Count 2.24 10^6/uL (4.70-6.10); Red Cell Dist. Width 12.1 % (11.5-14.5)
[2024-09-09 05:35] LABS: Blood Urea Nitrogen 19 mg/dl (9-20); Calcium 8.8 mg/dl (8.4-10.2); Carbon Dioxide 20 mmol/L (22-30); Chloride 112 mmol/L (98-107); Estimated Creatinine Clearance 89 ml/min; Glucose 105 mg/dl (70-99); Magnesium 1.6 mg/dl (1.6-2.3); Potassium 3.7 mmol/L (3.5-5.1); Sodium 140 mmol/L (135-145); eGFR > 60.00
--- NOTE | 2024-09-09 05:46 | W.PN.UPDATE ---
Update Note
Progress Note Update
Critical value received: Platelets 11, ordered 1 unit platelet to be transfused.
[2024-09-09 07:35] VITALS: BP 101/64; BP 123/75; BP 128/68
[2024-09-09] MEDS: VITAMIN B-12 1000 MCG PO (08:09)
[2024-09-09] MEDS: VITAMIN B1 100 MG PO (08:09)
[2024-09-09] MEDS: KEPPRA 1000 MG PO (08:09)
[2024-09-09] MEDS: LEVAQUIN 500 MG PO (08:09)
[2024-09-09] MEDS: DIFLUCAN 400 MG PO (08:09)
[2024-09-09] MEDS: BACTRIM DS 800 MG/160 MG 1 TABLET PO (08:09)
[2024-09-09] MEDS: ZESTRIL PO ×2 (08:10→08:12)
[2024-09-09] MEDS: ZOVIRAX 800 MG PO (08:10)
--- NOTE | 2024-09-09 08:30 | W.PN.ONC2 ---
Today's Communication / Plan
-
.
Impression
Impression
pancytopenia secondary to chemotherapy
mucositis
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
Plan
Plan
1. 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
-now admitted w/ pancytopenia likely secondary to chemotherapy
-neutropenic precautions -pt did receive Neulasta 08/29 - monitor WBC
-antimicrobial prophylaxis Bactrim, fluconazole, acyclovir, and Levaquin
-ID consult following
-continue to follow CBC and transfuse prn - CMV negative, irradiated, and leukoreduced products
-awaiting transfer to [facility], however, if has the support to follow up with labs and transfusion 2-3x/week outpatient then no objection to discharge today discussed with primary service
Will continue to follow with you
Subjective/Objective
Subjective
poor oral intake due to mucositis and lack of appetite
denies bleeding
Vital Signs:
Vital Signs
Temp Pulse Resp BP Pulse Ox
98.5 F 123 15 101/64 97
09/09/24 07:35 09/09/24 07:35 09/09/24 07:35 09/09/24 07:35 09/09/24 08:17
Lab Results:
Laboratory Data
WBC 2.0 10^3/uL (4.8-10.8) L* 09/09/24 04:37
Hgb 7.3 g/dL (13.0-18.0) L 09/09/24 04:37
Plt Count 11 10^3/uL (130-400) L* D 09/09/24 04:37
eGFR > 60.00 09/09/24 04:37
Physical Exam
HEENT: Other (mucus membranes dry); No Jaundice
Pulmonary: Clear
GI: Soft
Extremities: Pulses Present; No Edema
--- NOTE | 2024-09-09 10:48 | CM ---
Addendum entered by Shyann Barillas RN 09/09/24 16:18:
IMM reviewed. Patient for discharge to home today. Patient's son here to transport. No other needs identified at this time. Patient will f/u as a outpatient with his [facility] physicians.
Original Note:
Reviewed the chart notes and spoke with the patient at the bedside. Patient to received 1 unit platelets. Per note, awaiting transfer to [facility]. CM continues to be available to patient/family and is monitoring medical plan for needs at discharge.
Plan: Transfer to [facility] when bed becomes available.
--- NOTE | 2024-09-09 11:32 | W.PN.ID1 ---
Date of Service
Date of Service: September 09, 2024
Today's Communication
Continue current prophylactic antibiotics. Await potential transfer.
Assessment / Plan
# Neutropenia without fever
# Low BP resolved with IV fluid. Of note, decreased po intake.
# Profound pancytopenia due to recent chemotherapy
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
- CXR neg, Ucx neg
- Bcx x 2 neg x 48h
- Cefepime previously stopped.
- Continue ppx Bactrim MWF, Acyclovir 800mg po bid, fluconazole 400mg po qd, levofloxacin 500mg daily
- awaiting a bed at [facility]
Chief Complaint
-: Other (Neutropenia, hypotension)
Subjective / Review of Systems
Review of Systems: No Fever
Vital Signs / Physical Exam
Vital Signs
Vital Signs
Temp Pulse Resp BP Pulse Ox
98.5 F 123 15 101/64 97
09/09/24 07:35 09/09/24 07:35 09/09/24 07:35 09/09/24 07:35 09/09/24 08:17
Physical Exam
Constitutional: No Acute Distress, Comfortable, Chronically Ill and Non-toxic
Eyes: Sclera Anicteric
Cardiovascular: Regular Rate and S1/S2; Negative Murmur or Rub
Pulmonary: Clear and Symmetric; Negative Wheezes or Rales
Gastrointestinal: Soft, Non Tender, Non Distended and Normal Bowel Sounds
Skin: Warm and Dry; Negative Rash or Jaundice
Lines: Port (accessed functional)
Objective Data
Lab Data
Lab Results
09/09/24 04:37
09/09/24 04:37
Estimated Creat Clear 89 ml/min 09/09/24 04:37
Lactic Acid Cancelled 09/05/24 17:00
Total Bilirubin 0.6 mg/dl (0.2-1.3) 09/07/24 04:59
AST 16 U/L (17-59) L 09/07/24 04:59
ALT 15 U/L (0-50) 09/07/24 04:59
Alkaline Phosphatase 60 U/L (38-126) 09/07/24 04:59
Most recent labs reviewed.
Micro Results:
09/05/24 14:42 Blood Culture - Preliminary
Blood/Venous No Growth in 72 hours- Final report to follow
09/05/24 14:42 Blood Culture - Preliminary
Blood/Venous No Growth in 72 hours- Final report to follow
09/05/24 13:11 Urine Culture - Final
Urine NO GROWTH
09/05/24 13:11 Influenza Types A & B (TY) - Final
Nasal Swab Negative for Influenza A & B, NAAT
Negative results must be combined with clinical observations
and patient history.
Nucleic Acid Amplification test (NAAT)performed on the
[employer] platform.
Imaging:
09/05/24 CXR: Clear lungs.
Care Review
Plan reviewed with: Other Provider ([facility])
[2024-09-09 11:58] VITALS: BP 108/63
[2024-09-09 12:16] VITALS: BP 116/67
--- NOTE | 2024-09-09 12:34 | W.PN.HOSP.TC ---
Addendum entered and electronically signed by Jesenia Thorpe MD 09/10/24 07:50:
total DC time 40 min
Addendum entered and electronically signed by Jesenia Thorpe MD 09/09/24 13:20:
I saw and evaluated the patient. I reviewed the resident�s note and agree with findings and plan as documented in the resident�s note.
A/P:
# Hypotension, responsive to IVF and resolved
likely due to chemo/possibly decreased oral intake
Does not meet sepsis criteria
positive orthostatics but not symptomatic
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
# Neutropenic without fever but immunosuppressed
last chemo week [employer]
Accepted at [facility] by Dr. Catherine (accepting physician), awaiting transfer
s/p 3 units platelets, 2 unit pRBC (only give CMV negative, irradiated blood products, leukoreduced)
cultures neg, off therapeutic Abx
Cont ppx Bactrim MWF, Acyclovir 800mg po bid, fluconazole 400mg po qd, levofloxacin 500mg daily
ID on board
# Acute kidney injury likely due to hypotension in combination with Bactrim, lisinopril
Resolved
# [employer]OR [employer] lymphoma
cont Keppra for seizure prophylaxis
chemo per MALVIN
# hypomagnesemia
replete PRN
Original Note:
Today's Communication/Plan
-
- [facility]
Assessment / Plan
Assessment / Plan
Discussed with Patient bedside and he is ok with being discharged to [facility].
Will also discuss with patients family.
Hypotension due to poor oral intake: resolved
- Today's blood pressure 116/69 and is well-controlled
- no tachycardia, dry mucous membranes, decreased skin turgor, decreased urine output
- Does not meet sepsis criteria
- Monitor urine output and electrolytes
Pancytopenia in the setting of lymphoma treated by chemotherapy
Leukopenia
Thrombocytopenia
Normocytic anemia
Neutropenic fever:
-No fever, chills, fatigue
- Today's labs show WBC 2.0, RBC 2.24, hemoglobin 7.3, platelet count 11, CMP normal
-Transfuse platelets since platelet count is 11, gave 1 unit of platelets
-Transfuse if hemoglobin is less than 7 and only give CMV negative, irradiated blood products
- Blood cultures negative
- Heme-onc following
- Last chemotherapy session was last Monday with Dr. Perez and his future plans of stem cell transplant to be done at [facility]
- Continue acyclovir, Bactrim, Keppra, acyclovir, thus cefepime was stopped
- Infectious disease following
- Daily CBC
[employer]OR [employer] lymphoma:
- Continue Keppra for seizure prophylaxis
- His current care is currently being coordinated at [facility] with Dr. Perez.
Acute kidney injury on CKD:
- Creatinine is 1.0 today trending down from 1.4
- Hold lisinopril
- Monitor BMP
DVT prophylaxis�heparin
Full code
Anticipated Discharge: 24 - 48 hours
Subjective/Interval History
-
Date of Service: September 09, 2024
No acute medical concerns.
Objective Data
-
Labs:
Laboratory Results
09/09/24
04:37
WBC 2.0 L*
Hgb 7.3 L
Hct 20.4 L*
Plt Count 11 L* D
Sodium 140
Potassium 3.7
Chloride 112 H
Carbon Dioxide 20 L
BUN 19
Creatinine 1.0
Glucose 105 H
Calcium 8.8
Vital Signs:
Vital Signs
Temp Pulse Resp BP Pulse Ox
98.5 F 72 16 116/67 97
09/09/24 12:16 09/09/24 12:16 09/09/24 12:16 09/09/24 12:16 09/09/24 08:17
I&O
09/08/24 09/09/24 09/10/24
06:59 06:59 06:59
Intake Total 1793 / 1793 960 / 960 1440 / 1440
Output Total 275 / 275
Balance 1518 / 1518 960 / 960 1440 / 1440
Review of Systems
-
All other systems: Reviewed and negative
Physical Exam
-
General: Well Developed, Well Nourished and No Apparent Distress
HEENT: Normocephalic and Atraumatic
Respiratory: Clear to Auscultation; Negative Wheezes or Rhonchi
Cardiac: Regular Rhythm and S1/S2; Negative Murmur
GI: Soft, Nontender, Nondistended and Normal Bowel Sounds
Musculoskeletal: No Clubbing, No Cyanosis and No Edema
Skin: Warm
Neuro: Awake
Data Reviewed
-
Labs: Labs Reviewed by me and Discussed with Physician
[2024-09-09 13:14] VITALS: BP 116/64
--- NOTE | 2024-09-09 13:15 | PTCARENOTE ---
Pt transfused with one unit of Platelets w/o ill effects, VS remain stable and Pt remains afebrile.
[2024-09-09 15:06] VITALS: BP 142/75
--- NOTE | 2024-09-09 16:43 | VATNOTE ---
right subq port deaccessed per protocol. Blood return noted prior to.
[2024-09-09 17:36] LABS: Absolute Neutrophils -Man Diff 1.2 10^3/uL (1.4-6.5); Band Neutrophils 0 % (0-3); Lymphocytes 12 % (20-51); Monocytes 16 % (2-9); Segmented Neutrophils 64 % (42-75)
[2024-09-09 17:37] LABS: Platelets Checked Yes
[2024-09-09 17:39] LABS: Total Cells Counted 100
[2024-09-09 17:40] LABS: Normal RBC Morphology Yes
--- NOTE | 2024-09-09 17:47 | W.DCSUMMARY ---
Documented by User: Ryan Lowe MD, Resident 09/09/24 18:06
Discharge Summary
Discharge Data
Date of Admission: 09/05/24
Date of Discharge: 09/09/24
-
Pending Results: No
Hospital Course
Discharging Physician : Dr. Jesenia Thorpe and Dr. Ryan Lowe
Disposition : Home with home health
Primary care physician : Dr. Richard Camarillo
Principal Discharge diagnosis : Chemotherapy induced Pancytopenia
Chronic Discharge diagnosis : Hypotension, Neutropenic fever, Acute kidney injury, TENANT COORDINATOR lymphoma, Hypomagnesemia
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
visiting nurse systolic blood pressure was in the 80s. Preceding this 2 weeks ago he had a rhinovirus infection and recovered. He also received a platelet transfusion 2 days ago.
Problem #1: Hypotension: Resolved with IVF. Most likely due to chemo/decreased oral intake. On discharge blood pressure is 142/75.
Problem #2: Chemotherapy induced pancytopenia: From TENANT COORDINATOR lymphoma. Last dose of chemo was last Monday. S/p blood and platelet transfusion. Blood cultures negative. Today, WBCs 2.0 RBC is 2.24, hemoglobin 7.3, platelets are 11. CBC and CMP with
provider in 1-2 days at [facility].- Continue acyclovir, Bactrim, Keppra, Levaquin, fluconazole that he was all taking at home to prevent viral, bacterial, fungal infections.
Problem #3: Acute Kidney Injury: Due to hypovolemia. Resolved. Creatinine 1.0.
Problem #4: TENANT COORDINATOR lymphoma: Continue Keppra. Consult Dr. Perez at [place].
Problem #5: Hypomagnesemia: Repleted
Important imaging findings :
Chest x-ray/03/22:
# Clear lungs
Procedure findings :
Discharge Plan
-
Patient Disposition: Home with Home Care
Discharge Diagnosis/Procedures: Hypertension resolved with IVF, pancytopenia, neutropenic fever, acute kidney injury, TENANT COORDINATOR lymphoma, hypomagnesemia
Condition: Fair
Diet: Regular
Activity: As tolerated
Driving Restrictions: Not until seen by your Dr
Bathing Restrictions: None
Blood Work: CBC with PCP as soon as possible
CMP with PCP as soon as possible
Other Services: VN
Referrals:
Carrol Perez MD Hem/onc [Other] - in two to three days
Bryant Carrizales MD [Active] - in less than 1 week
Additional Discharge Medication Instructions: Bactrim Monday
Acyclovir 800 mg twice a day by mouth
Levofloxacin 500 mg daily
Fluconazole 400 mg once a day
Prescriptions:
New
fluconazole 200 mg Tablet
400 mg PO DAILY Qty: 30 0RF
sulfamethoxazole-trimethoprim 800-160 mg Tablet
1 tab PO MOWEFR Qty: 30 0RF
levofloxacin 500 mg Tablet
500 mg PO DAILY Qty: 30 0RF
Continued
thiamine HCl (vitamin B1) 100 mg Tablet
100 mg PO DAILY
acyclovir 800 mg Tablet
800 mg PO BID
famotidine [Pepcid] 20 mg Tablet
20 mg PO DAILYPRN PRN (Reason: given during chemo treatment)
cyanocobalamin (vitamin B-12) 500 mcg Tablet
1,000 mcg PO DAILY
Neulasta 6 mg/0.6 mL Syringe
6 mg SC MONTHLY
levetiracetam [Keppra] 1,000 mg Tablet
1,000 mg PO BID
Zarxio 480 mcg/0.8 mL Syringe
480 mcg SC Q25D
lisinopril 10 mg tablet
10 mg PO DAILY
Discontinued
sulfamethoxazole-trimethoprim [Bactrim] 400-80 mg Tablet
1 tab PO MOWEFR
Discharge Orders:
Discharge Patient (As Directed); Ordered 09/09/24
Ordered By: Ryan Lowe
Discharge Date and Time
Discharge Date/Time: 09/09/24 17:35
Print Language: CUBAN

Documented by User: Jesenia Tohrpe MD 09/10/24 07:44
Discharge Summary
Discharge Data
Date of Admission: 09/05/24
Date of Discharge: 09/10/24
Hospital Course
Discharging Physician : Dr. Jesenia Thorpe and Dr. Ryan Lowe
Disposition : Home with home health
Primary care physician : Dr. Richard Camarillo
Principal Discharge diagnosis : Chemotherapy induced Pancytopenia
Chronic Discharge diagnosis : Hypotension, TENANT COORDINATOR lymphoma on chemo
Hospital Course : 64-year-old male, with past medical history as stated above, presented with hypotension (systolic blood pressure low in the 80s). Preceding this 2 weeks ago, he had a rhinovirus infection and recovered. He also received a platelet
transfusion 2 days ago [employer].
Problem #1: Hypotension: Resolved with IVF. Most likely due to chemo/decreased oral intake. Blood cultures negative. On discharge blood pressure improved to 142/75.
Problem #2: Chemotherapy induced pancytopenia (for TENANT COORDINATOR lymphoma). 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 He received PRBC (2 units) and platelet (4 units) transfusion this admission. On day of discharge: WBCs 2.0, RBC 2.24, hemoglobin 7.3, platelets
11. Although his counts were still low, he has been cleared by oncology for discharge to follow-up very closely with his oncologic team at [facility] (in 1 to 2 days).
He can continue acyclovir, Bactrim, Levaquin, fluconazole for viral, bacterial, and fungal prophylaxis.
Problem #3: Acute Kidney Injury due to hypovolemia. Resolved. Creatinine improved from 1.8 (peak) to 1.0 on day of discharge.
Problem #4: TENANT COORDINATOR lymphoma: Continue Keppra for seizure prophylaxis, and follow-up closely with oncologic team (Dr. Perez) at [place].
Important imaging findings :
Chest x-ray/03/22: Clear lungs
Discharge Plan
-
Patient Disposition: Home with Home Care
Discharge Diagnosis/Procedures: Hypertension resolved with IVF, pancytopenia, neutropenic fever, acute kidney injury, TENANT COORDINATOR lymphoma, hypomagnesemia
Condition: Fair
Diet: Regular
Activity: As tolerated
Driving Restrictions: Not until seen by your Dr
Bathing Restrictions: None
Blood Work: CBC with PCP as soon as possible
CMP with PCP as soon as possible
Other Services: VN
Referrals:
Carrol Perez MD Hem/onc [Other] - in two to three days
Bryant Carrizales MD [Active] - in less than 1 week
Additional Discharge Medication Instructions: Bactrim Monday
Acyclovir 800 mg twice a day by mouth
Levofloxacin 500 mg daily
Fluconazole 400 mg once a day
Prescriptions:
New
fluconazole 200 mg Tablet
400 mg PO DAILY Qty: 30 0RF
sulfamethoxazole-trimethoprim 800-160 mg Tablet
1 tab PO MOWEFR Qty: 30 0RF
levofloxacin 500 mg Tablet
500 mg PO DAILY Qty: 30 0RF
Continued
thiamine HCl (vitamin B1) 100 mg Tablet
100 mg PO DAILY
acyclovir 800 mg Tablet
800 mg PO BID
famotidine [Pepcid] 20 mg Tablet
20 mg PO DAILYPRN PRN (Reason: given during chemo treatment)
cyanocobalamin (vitamin B-12) 500 mcg Tablet
1,000 mcg PO DAILY
Neulasta 6 mg/0.6 mL Syringe
6 mg SC MONTHLY
levetiracetam [Keppra] 1,000 mg Tablet
1,000 mg PO BID
Zarxio 480 mcg/0.8 mL Syringe
480 mcg SC Q25D
lisinopril 10 mg tablet
10 mg PO DAILY
Discontinued
sulfamethoxazole-trimethoprim [Bactrim] 400-80 mg Tablet
1 tab PO MOWEFR
Discharge Orders:
Discharge Patient (As Directed); Ordered 09/09/24
Ordered By: Ryan Lowe
Discharge Date and Time
Discharge Date/Time: 09/09/24 17:35
Print Language: CUBAN
== END 2024-09-09 17:35 | disposition home or self-care (01) | DRG 682 ==
LOC: 2 SOUTH 16:04
PROVIDERS: Internal Medicine; Nurse Practitioner; Nurse Practitioner Family; ADMITTING PHYSICIAN Student in an Organized Health Care Education/Training Program; ATTENDING PHYSICIAN Internal Medicine; EMERGENCY PHYSICIAN Student in an Organized Health Care Education/Training Program; OTHER PHYSICIAN Internal Medicine Hematology & Oncology; OTHER PHYSICIAN Internal Medicine Infectious Disease
PROC: 30233R1 Transfusion of Nonautologous Platelets into Peripheral Vein, Percutaneous Approach (ICD-10-PCS; 2024-09-05)
PROC: 30243R1 Transfusion of Nonautologous Platelets into Central Vein, Percutaneous Approach (ICD-10-PCS; 2024-09-05)
PROC: 30243N1 Transfusion of Nonautologous Red Blood Cells into Central Vein, Percutaneous Approach (ICD-10-PCS; 2024-09-05)
DX: N17.9 Acute kidney failure, unspecified (principal); D61.810 Antineoplastic chemotherapy induced pancytopenia; C83.390 Primary central nervous system lymphoma; I95.2 Hypotension due to drugs; R19.7 Diarrhea, unspecified; D70.9 Neutropenia, unspecified; I12.9 Hypertensive chronic kidney disease with stage 1 through stage 4 chronic kidney disease, or unspecified chronic kidney disease; E83.42 Hypomagnesemia; R50.81 Fever presenting with conditions classified elsewhere; N18.9 Chronic kidney disease, unspecified; F10.11 Alcohol abuse, in remission; T45.1X5A Adverse effect of antineoplastic and immunosuppressive drugs, initial encounter; Y92.9 Unspecified place or not applicable; Z88.0 Allergy status to penicillin; Z87.891 Personal history of nicotine dependence; Z92.21 Personal history of antineoplastic chemotherapy; Z11.52 Encounter for screening for COVID-19
CPT/HCPCS: 71046; 80048; 80053; 81003; 81015; 82962; 83605; 83735; 85025; 85027; 86803; 86850; 86900; 86901; 86920; 87040; 87086; 87502; 87811; 93005; 96360; 99285; P9058; P9073